=== PATIENT | female | born 1945 | race Caucasian/White ===

== ENCOUNTER 2016-10-14 21:25 | Inpatient (IN) | payer MEDICARE, MEDICAID ==
--- NOTE | 2016-10-14 22:12 | ED Physician Chart ---
Chief Complaint/HPI - Patient Information Date Seen:: 10/14/16 Time Seen:: 22:07 Chief Complaint:: geripsych eval History of Present Illness:: [place] after [place] has had worse behavior lately...she is screaming " help " nonstop. wont take her ativan. screams and swears at staff all day. she denies any pain at present. she is not a very good historian. no recent fever or infection. no acute pain. known hx of dementia. Allergies:: Allergies Allergy/AdvReac Type Severity Reaction Status Date / Time No Known Allergies Allergy Verified 10/14/16 22:06 Vitals:: Vital Signs - 8 hr 10/14/16 21:30 Temp 97.3 F HR 74 RR 18 BP 106/72 O2 Sat % 97 Historian:: Patient Review of Systems - Review of Systems General/Constitutional: No fever, No chills, No weight loss, No weakness, No diaphoresis, No edema, No loss of appetite Skin: No skin lesions, No rash, No bruising Head: No headache, No light-headedness Eyes: No loss of vision, No pain, No diplopia ENT: No earache, No nasal drainage, No sore throat, No tinnitus Neck: No neck pain, No swelling, No thyromegaly, No stiffness, No mass noted Cardio Vascular: No chest pain, No palpitations, No PND, No orthopnea, No edema Pulmonary: No SOB, No cough, No sputum, No wheezing GI: No nausea, No vomiting, No diarrhea, No pain, No melena, No hematochezia, No constipation, No hematemesis G/U: No dysuria, No frequency, No hematuria Musculoskeletal: No bone or joint pain, No back pain, No muscle pain Endocrine: No polyuria, No polydipsia Psychiatric: No prior psych history, No depression, No anxiety, No suicidal ideation Hematopoietic: No bruising, No lymphadenopathy Allergic/Immuno: No urticaria, No angioedema Neurological: No syncope, No focal symptoms, No weakness, No paresthesia, No headache, No seizure, No dizziness, Confusion, No vertigo Past Medical History - Past Medical History Past Medical History: DM, Asthma/COPD, CVA/TIA, Dyslipidemia, ESRD, Dementia Social History: Care Facility Psychiatricy History: Dementia Family Medical History - Family Member Mother History Unknown: Yes Physical Exam - Physical Examination General/Constitutional: Awake, Well-developed, well-nourished, Alert, No distress, Non-toxic appearing Other Gen/Cons comments:: alert and in no obvious pain. denies pain/illness/injury. wn/wh. somewhat drowsy. Head: Atraumatic Eyes: Lids, conjuctiva normal, PERRL, EOMI Skin: Nl inspection, No rash, No skin lesions, No ecchymosis, Well hydrated, No lymphadenopathy ENMT: External ears, nose nl, Nasal exam nl, Lips, teeth, gums nl Neck: Nontender, Full ROM w/o pain, No JVD, No nuchal rigidity, No bruit, No mass, No stridor Respiratory: Nl effort/Exclusion, Clear to Auscultation, No Wheeze/Rhonchi/Rales Cardio Vascular: RRR, No murmur, gallop, rubs, NL S1 S2 GI: No tenderness/rebounding/guarding, No organomegaly, No hernia, Normal BS's, Nondistended, No mass/bruits, No McBurney tenderness : No CVA tenderness Extremities: No tenderness or effusion, Full ROM, normal strength in all extremities, No edema, Normal digits & nails Neuro/Psych: Alert/oriented, DTR's symmetric, Normal sensory exam, Normal motor strength, Judgement/insight normal, Mood normal, Normal gait, No focal deficits Misc: normal gait, Normal back, No paraspinal tenderness Labs/Radiology/EKG Results - Lab Results Results: Laboratory Tests 10/14/16 10/14/16 10/14/16 22:35 22:35 22:35 WBC 7.1 RBC 3.62 L Hgb 11.4 L Hct 33.6 L MCV 92.8 MCH 31.6 H MCHC Differential 34.0 RDW 13.4 Plt Count 228 MPV 9.0 Neutrophils % 56.8 Lymphocytes % 24.4 Monocytes % 9.0 Eosinophils % 6.5 H Basophils % 3.3 H Sodium 139 Potassium 3.9 Chloride 108 H Carbon Dioxide 27.3 Anion Gap 7.6 BUN 25 Creatinine 1.3 H Est GFR ( Amer) TNP Est GFR (Non-Af Amer) TNP BUN/Creatinine Ratio 19.2 Glucose 116 H Calcium 9.0 Total Bilirubin 0.2 L AST 11 L ALT 5 L Alkaline Phosphatase 48 Troponin I Total Protein 6.2 Albumin 3.5 L Globulin 2.7 Albumin/Globulin Ratio 1.3 Triglycerides 107 Cholesterol 126 LDL Cholesterol Direct 69 L HDL Cholesterol 36 Salicylates < 25.0 L Acetaminophen < 10.0 L Valproic Acid 96.0 Ethyl Alcohol < 10 10/14/16 22:35 WBC RBC Hgb Hct MCV MCH MCHC Differential RDW Plt Count MPV Neutrophils % Lymphocytes % Monocytes % Eosinophils % Basophils % Sodium Potassium Chloride Carbon Dioxide Anion Gap BUN Creatinine Est GFR ( Amer) Est GFR (Non-Af Amer) BUN/Creatinine Ratio Glucose Calcium Total Bilirubin AST ALT Alkaline Phosphatase Troponin I < 0.01 L Total Protein Albumin Globulin Albumin/Globulin Ratio Triglycerides Cholesterol LDL Cholesterol Direct HDL Cholesterol Salicylates Acetaminophen Valproic Acid Ethyl Alcohol - EKG Interpretations EKG Time:: 20:15 Rate & Rhythm: nsr 76 [place]: 56 Intervals: qrs 116 Comments:: poor wave morphology (low voltage) inferior leads ED Septic Shock - . Is Septic Shock (SBP<90, OR Lactate>4 mmol\\L) present?: No - <6hrs of presentation: Vital Signs: Vital Signs - 8 hr 10/14/16 21:30 Temp 97.3 F HR 74 RR 18 BP 106/72 O2 Sat % 97 Reassessment (Disposition) - Reassessment Reassessment:: pt does become agitated and yelling at times. attempted to understand why but have gotten no cogent response. Reassessment Condition:: Unchanged - Diagnosis Diagnosis:: agitation, difficult behavior medically clear for geripsych admission - Patient Disposition Admitted to:: [facility] Condition at Disposition:: Unchanged
[2016-10-14 22:43] LABS: % BASOPHILS 3.3 % (0.0-2.0); % EOSINOPHILS 6.5 % (0.0-5.0); % LYMPHOCYTES 24.4 % (20.0-50.0); % NEUTROPHILS 56.8 % (40.0-80.0); HEMATOCRIT 33.6 % (35.0-45.0); HEMOGLOBIN 11.4 gm/dL (11.7-16.1); MEAN CELL VOLUME 92.8 fl (81-100); MEAN CORPUSCULAR HEMOGLOBIN 31.6 pg (27.0-31.0); NEUTROPHILE ABSOLUTE 4.1 Th/cmm (1.8-8.0); PLATELET COUNT 228 Th/cmm (150-400); RED BLOOD COUNT 3.62 Mil/cmm (3.80-5.20); RED CELL DISTRIBUTION WIDTH 13.4 % (11.5-20.0); WHITE BLOOD COUNT 7.1 Th/cmm (4.8-10.8)
[2016-10-14 23:04] LABS: ACETAMINOPHEN < 10.0 ug/mL (10.0-30.0); ALB/GLOB RATIO 1.3 (1.0-1.8); ALKALINE PHOSPHATASE 48 U/L (34-104); ANION GAP 7.6 (7.0-16.0); BILIRUBIN,TOTAL 0.2 mg/dL (0.3-1.0); BUN - UREA NITROGEN 25 mg/dL (7-25); BUN/CREATININE RATIO 19.2; CARBON DIOXIDE 27.3 mEq/L (21.0-31.0); CHLORIDE 108 mEq/L (98-107); CHOLESTEROL 126 mg/dL (<200); CREATININE - SERUM 1.3 mg/dL (0.6-1.2); GLUCOSE 116 mg/dL (70-105); POTASSIUM SERUM 3.9 mEq/L (3.5-5.1); SGOT 11 U/L (13-39); SGPT/ALT 5 U/L (7-52); SODIUM SERUM 139 mEq/L (136-145); TRIGLYCERIDES 107 mg/dL (<150)
[2016-10-15] MEDS ORDERED: Maalox 30 mL Cup PO PRN (03:28)
[2016-10-15] MEDS ORDERED: Magnesium Hydroxide (MOM) 30 mL UDC PO PRN ×2 (03:28→08:27)
[2016-10-15 04:38] VITALS: BP 103/80
[2016-10-15] MEDS ORDERED: Fleet Enema 135 mL RC PRN (08:27)
[2016-10-15] MEDS ORDERED: APAP/Oxycodone 5/325mg Oral Tab PO PRN (08:27)
[2016-10-15] MEDS ORDERED: Albuterol/Ipratropium Neb 3 ML AERS HHN PRN (08:27)
[2016-10-15] MEDS ORDERED: Non-Formulary Item 1 EA (Cran/Vitc/Mannose/Fos/Bromeln [Uti-Stat Liquid] 30 ML) PO SCH (09:00)
[2016-10-15] MEDS ORDERED: Multivitamin w/ Minerals Tab PO SCH (09:00)
[2016-10-15] MEDS ORDERED: Non-Formulary Item 1 EA (Fluticasone/Vilanterol [Breo Ellipta 100-25 Mcg Inh] 1 EACH) IH SCH (09:00)
[2016-10-15] MEDS: Multivitamin Tab PO SCH (09:00)
[2016-10-15] MEDS ORDERED: Non-Formulary Item 1 EA (Cranberry Fruit Concentrate [Cranberry] 450 MG) PO SCH (09:00)
[2016-10-15] MEDS: Dextromethorphan/Quinidine 20mg/10mg Cap PO SCH ×2 (09:13→21:18)
[2016-10-15] MEDS: Oxybutynin Chloride 5 mg ER Tab PO SCH ×2 (14:16→16:28)
[2016-10-15] MEDS ORDERED: Haloperidol Lactate 5 mg/mL 1mL Vial IM ONE (15:19)
[2016-10-15] MEDS ORDERED: Haloperidol Lactate 5 mg/mL 1mL Vial ONE (15:19)
[2016-10-15] MEDS: Pantoprazole 40 mg EC Tab PO SCH (16:19)
[2016-10-15] MEDS: Atorvastatin Calcium 10 MG TAB PO SCH (21:00)
[2016-10-15] MEDS ORDERED: PYRIDOXINE PO SCH (21:00)
[2016-10-15] MEDS ORDERED: MELATONIN PO SCH (21:00)
[2016-10-16] MEDS: Dextromethorphan/Quinidine 20mg/10mg Cap PO SCH ×3 (10:45→20:51)
[2016-10-16] MEDS: Pantoprazole 40 mg EC Tab PO SCH ×2 (10:46→11:48)
[2016-10-16] MEDS: Multivitamin Tab PO SCH ×2 (10:46→11:43)
[2016-10-16] MEDS: Oxybutynin Chloride 5 mg ER Tab PO SCH ×3 (10:46→16:49)
[2016-10-16] MEDS ORDERED: Haloperidol Lactate 5 mg/mL 1mL Vial ONE (14:43)
[2016-10-16] MEDS: Haloperidol Lactate 5 mg/mL 1mL Vial IM ONE ×2 (14:53→14:54)
[2016-10-16] MEDS: Atorvastatin Calcium 10 MG TAB PO SCH (20:52)
[2016-10-17] MEDS: Oxybutynin Chloride 5 mg ER Tab PO SCH ×2 (08:35→17:05)
[2016-10-17] MEDS: Multivitamin Tab PO SCH (08:35)
[2016-10-17] MEDS: Dextromethorphan/Quinidine 20mg/10mg Cap PO SCH ×2 (08:37→20:37)
[2016-10-17] MEDS: Pantoprazole 40 mg EC Tab PO SCH (08:37)
[2016-10-17] MEDS: Atorvastatin Calcium 10 MG TAB PO SCH (20:36)
[2016-10-18] MEDS: Dextromethorphan/Quinidine 20mg/10mg Cap PO SCH ×2 (09:49→20:54)
[2016-10-18] MEDS: Multivitamin Tab PO SCH (09:50)
[2016-10-18] MEDS: Oxybutynin Chloride 5 mg ER Tab PO SCH ×2 (09:50→17:21)
[2016-10-18] MEDS: Pantoprazole 40 mg EC Tab PO SCH (09:50)
[2016-10-18] MEDS: Atorvastatin Calcium 10 MG TAB PO SCH (20:54)
[2016-10-19] MEDS: Oxybutynin Chloride 5 mg ER Tab PO SCH ×2 (08:08→17:40)
[2016-10-19] MEDS: Multivitamin Tab PO SCH (08:09)
[2016-10-19] MEDS: Dextromethorphan/Quinidine 20mg/10mg Cap PO SCH ×2 (08:09→20:36)
[2016-10-19] MEDS: Pantoprazole 40 mg EC Tab PO SCH (08:09)
[2016-10-19] MEDS: Atorvastatin Calcium 10 MG TAB PO SCH (20:36)
[2016-10-20] MEDS: Multivitamin Tab PO SCH (08:09)
[2016-10-20] MEDS: Pantoprazole 40 mg EC Tab PO SCH (08:09)
[2016-10-20] MEDS: Dextromethorphan/Quinidine 20mg/10mg Cap PO SCH ×2 (08:09→20:31)
[2016-10-20] MEDS: Oxybutynin Chloride 5 mg ER Tab PO SCH ×2 (08:09→17:11)
[2016-10-20] MEDS: Atorvastatin Calcium 10 MG TAB PO SCH (20:30)
[2016-10-21] MEDS: Oxybutynin Chloride 5 mg ER Tab PO SCH ×2 (09:23→17:17)
[2016-10-21] MEDS: Dextromethorphan/Quinidine 20mg/10mg Cap PO SCH ×2 (09:23→20:51)
[2016-10-21] MEDS: Pantoprazole 40 mg EC Tab PO SCH (09:23)
[2016-10-21] MEDS: Multivitamin Tab PO SCH (09:23)
[2016-10-21] MEDS: Atorvastatin Calcium 10 MG TAB PO SCH (20:50)
--- NOTE | 2016-10-21 23:43 | Admit Criteria Form ---
Admit Criteria Forms - Admit Criteria Diagnosis: PSYCHIATRIC DISORDERS (Place 'X' for any and all applicable criteria): Ongoing inpatient care may be needed for 1 or more of the following(1)(2)(3)(4)( 6)(7)(8): [ ]I. Danger to self or others not manageable at lower level of care. [ ]II. Grave disability (eg, inability to perform self care necessary at lower level of care) [X ]III. Agitation or inappropriate behavior interfering with care for primary condition (eg, attempting to discontinue lines or drains prematurely, unable to cooperate with respiratory care) [ ]IV. Severe disability or disorder indicated by ALL of the following: [ ]a) Severe behavioral health disorder-related symptoms or condition indicated by 1 or more of the following: [ ]i) Severe problem with cognition, memory, judgment, or impulse control [ ]ii) Severe clinical manifestations (eg, hallucinations, delusions, other acute psychotic symptoms, jessica, extreme agitation or anxiety) [ ]b) Patient management at lower level of care is not feasible until acute intervention or modification is initiated. Extended stay beyond goal length of stay for the primary condition may be needed until ALLof the following are present(1)(2)(3)(4)(722)(23): [ ]a) Danger to self or others is absent or manageable at lower level of care [ ]b) Behavior crisis management, including physical or chemical restraints, is required and is not available at a lower level of care. [ ]c) Behavioral symptoms (e.g., agitation, somnolence, inappropriate behavior) are present, and are not manageable at a lower level of care. [ ]d) Patient cannot understand follow-up treatment and crisis plan. [ ]e) Provider and supports are sufficiently available at lower level of care. [ ]f) Patient can participate (e.g., verify absence of plan for harm) and is in needed of monitoring. The original [facility] [employer] content created by [facility] [employer] has been revised. The portions of the content which have been revised are identified through the use of italic text or in bold, and [facility] [employer] has neither reviewed nor approved the modified material. All other unmodified content is copyright [facility]. Please see references footnoted in the original [facility] edition 2017 Admit Criteria Met?: Yes
[2016-10-22] MEDS: Multivitamin Tab PO SCH (09:16)
[2016-10-22] MEDS: Dextromethorphan/Quinidine 20mg/10mg Cap PO SCH ×2 (09:16→21:32)
[2016-10-22] MEDS: Oxybutynin Chloride 5 mg ER Tab PO SCH ×2 (09:16→17:05)
[2016-10-22] MEDS: Pantoprazole 40 mg EC Tab PO SCH (09:16)
[2016-10-22] MEDS ORDERED: Haloperidol Lactate 5 mg/mL 1mL Vial IM ONE (14:29)
[2016-10-22] MEDS: Atorvastatin Calcium 10 MG TAB PO SCH (21:31)
[2016-10-23] MEDS: Pantoprazole 40 mg EC Tab PO SCH (08:12)
[2016-10-23] MEDS: Dextromethorphan/Quinidine 20mg/10mg Cap PO SCH ×2 (08:13→21:40)
[2016-10-23] MEDS: Oxybutynin Chloride 5 mg ER Tab PO SCH ×2 (08:13→17:14)
[2016-10-23] MEDS: Multivitamin Tab PO SCH (08:13)
--- NOTE | 2016-10-23 08:16 | General Progress Note ---
Subjective - Review of Systems Service Date: 10/23/16 Subjective: Awake, Alert, Afebrile Objective - Results Result Diagrams: 10/14/16 22:35 10/14/16 22:35 Recent Labs: Laboratory Last Values WBC 7.1 Th/cmm (4.8-10.8) 10/14/16 22:35 RBC 3.62 Mil/cmm (3.80-5.20) L 10/14/16 22:35 Hgb 11.4 gm/dL (11.7-16.1) L 10/14/16 22:35 Hct 33.6 % (35.0-45.0) L 10/14/16 22:35 MCV 92.8 fl (81-100) 10/14/16 22:35 MCH 31.6 pg (27.0-31.0) H 10/14/16 22:35 MCHC Differential 34.0 pg (28.0-36.0) 10/14/16 22:35 RDW 13.4 % (11.5-20.0) 10/14/16 22:35 Plt Count 228 Th/cmm (150-400) 10/14/16 22:35 MPV 9.0 fl 10/14/16 22:35 Neutrophils % 56.8 % (40.0-80.0) 10/14/16 22:35 Lymphocytes % 24.4 % (20.0-50.0) 10/14/16 22:35 Monocytes % 9.0 % (2.0-10.0) 10/14/16 22:35 Eosinophils % 6.5 % (0.0-5.0) H 10/14/16 22:35 Basophils % 3.3 % (0.0-2.0) H 10/14/16 22:35 Sodium 139 mEq/L (136-145) 10/14/16 22:35 Potassium 3.9 mEq/L (3.5-5.1) 10/14/16 22:35 Chloride 108 mEq/L (98-107) H 10/14/16 22:35 Carbon Dioxide 27.3 mEq/L (21.0-31.0) 10/14/16 22:35 Anion Gap 7.6 (7.0-16.0) 10/14/16 22:35 BUN 25 mg/dL (7-25) 10/14/16 22:35 Creatinine 1.3 mg/dL (0.6-1.2) H 10/14/16 22:35 Est GFR ( Amer) TNP 10/14/16 22:35 Est GFR (Non-Af Amer) TNP 10/14/16 22:35 BUN/Creatinine Ratio 19.2 10/14/16 22:35 Glucose 116 mg/dL (70-105) H 10/14/16 22:35 POC Glucose 90 MG/DL (70 - 105) 10/20/16 06:38 Calcium 9.0 mg/dL (8.6-10.3) 10/14/16 22:35 Total Bilirubin 0.2 mg/dL (0.3-1.0) L 10/14/16 22:35 AST 11 U/L (13-39) L 10/14/16 22:35 ALT 5 U/L (7-52) L 10/14/16 22:35 Alkaline Phosphatase 48 U/L (34-104) 10/14/16 22:35 Troponin I < 0.01 ng/mL (0.01-0.05) L 10/14/16 22:35 Total Protein 6.2 gm/dL (6.0-8.3) 10/14/16 22:35 Albumin 3.5 gm/dL (3.7-5.3) L 10/14/16 22:35 Globulin 2.7 gm/dL 10/14/16 22:35 Albumin/Globulin Ratio 1.3 (1.0-1.8) 10/14/16 22:35 Triglycerides 107 mg/dL (<150) 10/14/16 22:35 Cholesterol 126 mg/dL (<200) 10/14/16 22:35 LDL Cholesterol Direct 69 mg/dL (75-193) L 10/14/16 22:35 HDL Cholesterol 36 mg/dL (23-92) 10/14/16 22:35 TSH 5.85 uIU/ml (0.34-5.60) H 10/14/16 22:35 Salicylates < 25.0 mg/L (30.0-100.0) L 10/14/16 22:35 Acetaminophen < 10.0 ug/mL (10.0-30.0) L 10/14/16 22:35 Valproic Acid 96.0 ug/mL (50.0-100.0) 10/14/16 22:35 Ethyl Alcohol < 10 mg/dL (0-10) 10/14/16 22:35 RPR NONREACTIVE (NONREACTIVE) 10/14/16 22:35 - Physical Exam Vitals and I&O: Vital Signs Temp 98.2 F 10/23/16 07:11 Pulse 65 10/23/16 07:11 Resp 19 10/23/16 07:11 BP 108/67 10/23/16 07:11 Pulse Ox 98 10/23/16 07:11 Intake & Output 10/22/16 10/23/16 10/23/16 18:59 06:59 18:59 Intake Total 1200 Balance 1200 Intake: Oral 1200 Other: # Voids 1 # Bowel Movements 1 Active Medications: Current Medications Acetaminophen (Tylenol) 650 mg PO Q4HR PRN PRN Reason: MILD PAIN AND T>101F Stop: 12/14/16 08:26 Al Hydrox/Mg Hydrox/Simethicone (Maalox) 30 ml PO Q4HR PRN PRN Reason: GI DISTRESS Stop: 12/14/16 03:27 Albuterol/Ipratropium (Duoneb Neb) 3 ml HHN Q4HR PRN PRN Reason: Shortness of Breath or Wheeze Stop: 12/14/16 08:26 Ascorbic Acid (Vitamin C) 500 mg PO DAILY NOY Stop: 12/14/16 08:59 Last Admin: 10/22/16 09:15 Dose: 500 mg Atorvastatin Calcium (Lipitor) 20 mg PO HS NOY Stop: 12/14/16 20:59 Last Admin: 10/22/16 21:31 Dose: 20 mg Bisacodyl (Dulcolax 10 Mg Supp) 10 mg RC DAILY PRN PRN Reason: Constipation Stop: 12/14/16 08:26 Buspirone HCl (Buspar) 10 mg PO DAILY NOY Stop: 12/14/16 16:59 Last Admin: 10/22/16 09:15 Dose: 10 mg Dextromethorphan/Quinidine (Nuedexta 20mg-10mg) 1 cap PO Q12HR NOY Stop: 12/14/16 08:59 Last Admin: 10/22/16 21:32 Dose: 1 cap Divalproex Sodium (Depakote Sprinkle) 250 mg PO BID NOY PRN Reason: Protocol Stop: 12/14/16 08:59 Last Admin: 10/22/16 17:05 Dose: 250 mg Docusate Sodium (Colace) 100 mg PO DAILY NOY Stop: 12/14/16 08:59 Last Admin: 10/22/16 09:15 Dose: 100 mg Ibuprofen (Motrin) 600 mg PO BID NOY Stop: 12/14/16 08:59 Last Admin: 10/22/16 17:05 Dose: 600 mg Lorazepam (Ativan) 0.5 mg PO Q4HR PRN; Protocol PRN Reason: Anxiety Stop: 11/14/16 03:27 Last Admin: 10/22/16 13:07 Dose: 0.5 mg Magnesium Hydroxide (Milk Of Magnesia) 30 ml PO HS PRN PRN Reason: Constipation Magnesium Hydroxide (Milk Of Magnesia) 30 ml PO HS PRN PRN Reason: Constipation Stop: 12/14/16 08:26 Mirtazapine (Remeron) 15 mg PO HS NOY PRN Reason: Protocol Stop: 12/14/16 20:59 Last Admin: 10/22/16 21:32 Dose: 15 mg Multivitamins/Vitamin C (Theragran) 1 tab PO DAILY NOY Stop: 12/14/16 08:59 Last Admin: 10/22/16 09:16 Dose: 1 tab Oxybutynin Chloride (Ditropan Xl) 5 mg PO BID NOY Stop: 12/14/16 08:59 Last Admin: 10/22/16 17:05 Dose: 5 mg Pantoprazole Sodium (Protonix) 40 mg PO DAILY NOY Stop: 12/14/16 08:59 Last Admin: 10/22/16 09:16 Dose: 40 mg Quetiapine Fumarate (Seroquel) 200 mg PO HS NOY PRN Reason: Protocol Stop: 12/22/16 20:59 Quetiapine Fumarate (Seroquel) 100 mg PO BID NOY Stop: 12/22/16 08:59 Sodium Phosphate (Fleet Enema) 135 ml RC Q48HR PRN PRN Reason: Constipation Stop: 12/14/16 08:26 Zinc Sulfate (Zinc Sulfate) 220 mg PO DAILY NOY Stop: 12/14/16 08:59 Last Admin: 07/19/17 09:15 Dose: 220 mg Zolpidem Tartrate (Ambien) 5 mg PO HS PRN PRN Reason: Insomnia Stop: 12/14/16 03:27 General: Alert HEENT: Atraumatic Neck: Supple Cardiovascular: Regular rate Lungs: Clear to auscultation Abdomen: Bowel sounds Assessment/Plan - Problem List Patient Problems: All Active Problems Asthma (Acute) J45.909 COPD (chronic obstructive pulmonary disease) (Acute) Hyperlipidemia (Acute) E78.5 PBA (pseudobulbar affect) (Acute) F48.2 PVD (peripheral vascular disease) (Acute) I73.9 Psychosis (Acute) F29 TIA (transient ischemic attack) (Acute) - Assessment Assessment: See above - Plan Plan: Continue Current Treatment Nutritional Asmnt/Malnutr-PDOC - Dietary Evaluation Malnutrition Findings (Please click <Entered> for more info): Nutritional Asmnt/Malnutrition Start: 10/17/16 11: 20 Text: Status: Complete Freq: Document 10/17/16 11:20 GSUN (Rec: 10/17/16 11:46 GSUN [id number]) Nutritional Asmnt/Malnutrition Patient General Information Nutritional Screening Consult Diagnosis Reason for visit: psychosis Pertinent Medical Hx/Surgical Hx DM, asthma/COPD, TIA, hyperlipidemia, dementia, major depression, bipolar Subjective Information 71 [address] consult for right heel pressure ulcer . Pt was calm during visit, confusion noted, fixated on wanting to go home and taking shoes off (pt was not wearing shoes). Pt is edentulous, denied difficulties chewing/ swallowing. Pt usually with good appetite, avg PO intake 100% of meals yesterday, meeting nutritional needs. Explained to pt importance of nutrition for ulcer to heal, pt understood. Pt report UBW 115lb, pt appear closer to 140lb. Unable to weigh due to air loww mattress. Pt appear appropriate for age, no significant wasting noted. Current Diet Order/ Nutrition Support Regular, mech soft chopped Pertinent Medications Maalox, Vitamin C, Lipitor, Dulcolax, Colace, MOM, Remeron , Theragran, Protonix, Seroquel, Fleet Enema, Zinc Sulfate Pertinent Labs 10/14: creatinine 1.3H, glucose 116H POC glucose 145H, 98 Nutritional Hx/Data Height 1.57 m Height (Calculated Centimeters) 157.5 Current Weight (lbs) 65.771 kg Weight (Calculated Kilograms) 65.8 Weight (Calculated Grams) 77192.9 [place] Body Weight 110 Weight Status Overweight GI Symptoms Skin Integrity/Comment: Florencio 12. Woud care 10/16: right heel acute on chronic pressure ulcer Current %PO Good (75-100%) Estimated Nutritional Goals Calories/Kcals/Kg EMR weight 145lb/65.9kg Kcals Calculated 1648-1977kcal (25-30kcal/kg) Protein Calculated 66-86g (1-1.3g/kg) Fluid: ml 1648-1977ml (1ml/kcal) Nutritional Problem 2. Problem Problem Altered nutrition related laboratory values related to Etiology DM aeb Signs/Symptoms: H&P, elevated glucose 1. Problem Problem Increased prot needs related to Etiology skin integrity aeb Signs/Symptoms: right heel pressure ulcer Intervention/Recommendation Comments 1. Recommend [id number] mech soft chopped. Avg PO intake is adequate. 2. Recommend 1 packet Arginaid for wound healing. Expected Outcomes/Goals Expected Outcomes/Goals 1. PO intake continue to meet at least 75% of estimated nutritional needs.
[2016-10-23] MEDS: Atorvastatin Calcium 10 MG TAB PO SCH (21:40)
--- NOTE | 2016-10-24 08:10 | General Progress Note ---
Subjective - Review of Systems Service Date: 10/24/16 Subjective: Awake, Alert, Afebrile Objective - Results Result Diagrams: 10/14/16 22:35 10/14/16 22:35 Recent Labs: Laboratory Last Values WBC 7.1 Th/cmm (4.8-10.8) 10/14/16 22:35 RBC 3.62 Mil/cmm (3.80-5.20) L 10/14/16 22:35 Hgb 11.4 gm/dL (11.7-16.1) L 10/14/16 22:35 Hct 33.6 % (35.0-45.0) L 10/14/16 22:35 MCV 92.8 fl (81-100) 10/14/16 22:35 MCH 31.6 pg (27.0-31.0) H 10/14/16 22:35 MCHC Differential 34.0 pg (28.0-36.0) 10/14/16 22:35 RDW 13.4 % (11.5-20.0) 10/14/16 22:35 Plt Count 228 Th/cmm (150-400) 10/14/16 22:35 MPV 9.0 fl 10/14/16 22:35 Neutrophils % 56.8 % (40.0-80.0) 10/14/16 22:35 Lymphocytes % 24.4 % (20.0-50.0) 10/14/16 22:35 Monocytes % 9.0 % (2.0-10.0) 10/14/16 22:35 Eosinophils % 6.5 % (0.0-5.0) H 10/14/16 22:35 Basophils % 3.3 % (0.0-2.0) H 10/14/16 22:35 Sodium 139 mEq/L (136-145) 10/14/16 22:35 Potassium 3.9 mEq/L (3.5-5.1) 10/14/16 22:35 Chloride 108 mEq/L (98-107) H 10/14/16 22:35 Carbon Dioxide 27.3 mEq/L (21.0-31.0) 10/14/16 22:35 Anion Gap 7.6 (7.0-16.0) 10/14/16 22:35 BUN 25 mg/dL (7-25) 10/14/16 22:35 Creatinine 1.3 mg/dL (0.6-1.2) H 10/14/16 22:35 Est GFR ( Amer) TNP 10/14/16 22:35 Est GFR (Non-Af Amer) TNP 10/14/16 22:35 BUN/Creatinine Ratio 19.2 10/14/16 22:35 Glucose 116 mg/dL (70-105) H 10/14/16 22:35 POC Glucose 90 MG/DL (70 - 105) 10/20/16 06:38 Calcium 9.0 mg/dL (8.6-10.3) 10/14/16 22:35 Total Bilirubin 0.2 mg/dL (0.3-1.0) L 10/14/16 22:35 AST 11 U/L (13-39) L 10/14/16 22:35 ALT 5 U/L (7-52) L 10/14/16 22:35 Alkaline Phosphatase 48 U/L (34-104) 10/14/16 22:35 Troponin I < 0.01 ng/mL (0.01-0.05) L 10/14/16 22:35 Total Protein 6.2 gm/dL (6.0-8.3) 10/14/16 22:35 Albumin 3.5 gm/dL (3.7-5.3) L 10/14/16 22:35 Globulin 2.7 gm/dL 10/14/16 22:35 Albumin/Globulin Ratio 1.3 (1.0-1.8) 10/14/16 22:35 Triglycerides 107 mg/dL (<150) 10/14/16 22:35 Cholesterol 126 mg/dL (<200) 10/14/16 22:35 LDL Cholesterol Direct 69 mg/dL (75-193) L 10/14/16 22:35 HDL Cholesterol 36 mg/dL (23-92) 10/14/16 22:35 TSH 5.85 uIU/ml (0.34-5.60) H 10/14/16 22:35 Salicylates < 25.0 mg/L (30.0-100.0) L 10/14/16 22:35 Acetaminophen < 10.0 ug/mL (10.0-30.0) L 10/14/16 22:35 Valproic Acid 96.0 ug/mL (50.0-100.0) 10/14/16 22:35 Ethyl Alcohol < 10 mg/dL (0-10) 10/14/16 22:35 RPR NONREACTIVE (NONREACTIVE) 10/14/16 22:35 - Physical Exam Vitals and I&O: Vital Signs Temp 97.6 F 10/24/16 07:21 Pulse 68 10/24/16 07:21 Resp 18 10/24/16 07:21 BP 92/54 10/24/16 07:21 Pulse Ox 97 10/24/16 07:21 Intake & Output 10/23/16 10/24/16 10/24/16 18:59 06:59 18:59 Intake Total 800 Balance 800 Intake: Oral 800 Other: # Voids 3 2 # Bowel Movements 0 Active Medications: Current Medications Acetaminophen (Tylenol) 650 mg PO Q4HR PRN PRN Reason: MILD PAIN AND T>101F Stop: 12/14/16 08:26 Al Hydrox/Mg Hydrox/Simethicone (Maalox) 30 ml PO Q4HR PRN PRN Reason: GI DISTRESS Stop: 12/14/16 03:27 Albuterol/Ipratropium (Duoneb Neb) 3 ml HHN Q4HR PRN PRN Reason: Shortness of Breath or Wheeze Stop: 12/14/16 08:26 Ascorbic Acid (Vitamin C) 500 mg PO DAILY NOY Stop: 12/14/16 08:59 Last Admin: 10/23/16 08:13 Dose: 500 mg Atorvastatin Calcium (Lipitor) 20 mg PO HS [facility] Stop: 12/14/16 20:59 Last Admin: 10/23/16 21:40 Dose: 20 mg Bisacodyl (Dulcolax 10 Mg Supp) 10 mg RC DAILY PRN PRN Reason: Constipation Stop: 12/14/16 08:26 Buspirone HCl (Buspar) 10 mg PO DAILY [facility] Stop: 12/14/16 16:59 Last Admin: 10/23/16 08:13 Dose: 10 mg Dextromethorphan/Quinidine (Nuedexta 20mg-10mg) 1 cap PO Q12HR NOY Stop: 12/14/16 08:59 Last Admin: 10/23/16 21:40 Dose: 1 cap Divalproex Sodium (Depakote Sprinkle) 250 mg PO BID NOY PRN Reason: Protocol Stop: 12/14/16 08:59 Last Admin: 10/23/16 17:14 Dose: 250 mg Docusate Sodium (Colace) 100 mg PO DAILY NOY Stop: 12/14/16 08:59 Last Admin: 10/23/16 08:12 Dose: 100 mg Ibuprofen (Motrin) 600 mg PO BID NOY Stop: 12/14/16 08:59 Last Admin: 10/23/16 17:15 Dose: 600 mg Lorazepam (Ativan) 0.5 mg PO Q4HR PRN; Protocol PRN Reason: Anxiety Stop: 11/14/16 03:27 Last Admin: 10/23/16 15:50 Dose: 0.5 mg Magnesium Hydroxide (Milk Of Magnesia) 30 ml PO HS PRN PRN Reason: Constipation Magnesium Hydroxide (Milk Of Magnesia) 30 ml PO HS PRN PRN Reason: Constipation Stop: 12/14/16 08:26 Mirtazapine (Remeron) 15 mg PO HS NOY PRN Reason: Protocol Stop: 12/14/16 20:59 Last Admin: 10/23/16 21:40 Dose: 15 mg Multivitamins/Vitamin C (Theragran) 1 tab PO DAILY NOY Stop: 12/14/16 08:59 Last Admin: 10/23/16 08:13 Dose: 1 tab Oxybutynin Chloride (Ditropan Xl) 5 mg PO BID NOY Stop: 12/14/16 08:59 Last Admin: 10/23/16 17:14 Dose: 5 mg Pantoprazole Sodium (Protonix) 40 mg PO DAILY NOY Stop: 12/14/16 08:59 Last Admin: 10/23/16 08:12 Dose: 40 mg Quetiapine Fumarate (Seroquel) 200 mg PO HS NOY PRN Reason: Protocol Stop: 12/22/16 20:59 Last Admin: 10/23/16 21:40 Dose: 200 mg Quetiapine Fumarate (Seroquel) 100 mg PO BID NOY Stop: 12/22/16 08:59 Last Admin: 10/23/16 17:14 Dose: 100 mg Sodium Phosphate (Fleet Enema) 135 ml RC Q48HR PRN PRN Reason: Constipation Stop: 12/14/16 08:26 Zinc Sulfate (Zinc Sulfate) 220 mg PO DAILY NOY Stop: 12/14/16 08:59 Last Admin: 10/23/16 08:11 Dose: 220 mg Zolpidem Tartrate (Ambien) 5 mg PO HS PRN PRN Reason: Insomnia Stop: 12/14/16 03:27 General: Alert HEENT: Atraumatic Neck: Supple Cardiovascular: Regular rate Lungs: Clear to auscultation Abdomen: Bowel sounds Assessment/Plan - Problem List Patient Problems: All Active Problems Asthma (Acute) J45.909 COPD (chronic obstructive pulmonary disease) (Acute) Hyperlipidemia (Acute) E78.5 PBA (pseudobulbar affect) (Acute) F48.2 PVD (peripheral vascular disease) (Acute) I73.9 Psychosis (Acute) F29 TIA (transient ischemic attack) (Acute) - Assessment Assessment: See above - Plan Plan: Continue Current Treatment Nutritional Asmnt/Malnutr-PDOC - Dietary Evaluation Malnutrition Findings (Please click <Entered> for more info): Nutritional Asmnt/Malnutrition Start: 10/17/16 11: 20 Text: Status: Complete Freq: Document 10/17/16 11:20 GSUN (Rec: 10/17/16 11:46 [email or web address] [email or web address]) Nutritional Asmnt/Malnutrition Patient General Information Nutritional Screening Consult Diagnosis Reason for visit: psychosis Pertinent Medical Hx/Surgical Hx DM, asthma/COPD, TIA, hyperlipidemia, dementia, major depression, bipolar Subjective Information 71 [address] consult for right heel pressure ulcer . Pt was calm during visit, confusion noted, fixated on wanting to go home and taking shoes off (pt was not wearing shoes). Pt is edentulous, denied difficulties chewing/ swallowing. Pt usually with good appetite, avg PO intake 100% of meals yesterday, meeting nutritional needs. Explained to pt importance of nutrition for ulcer to heal, pt understood. Pt report UBW 115lb, pt appear closer to 140lb. Unable to weigh due to air loww mattress. Pt appear appropriate for age, no significant wasting noted. Current Diet Order/ Nutrition Support Regular, mech soft chopped Pertinent Medications Maalox, Vitamin C, Lipitor, Dulcolax, Colace, MOM, Remeron , Theragran, Protonix, Seroquel, Fleet Enema, Zinc Sulfate Pertinent Labs 10/14: creatinine 1.3H, glucose 116H POC glucose 145H, 98 Nutritional Hx/Data Height 1.57 m Height (Calculated Centimeters) 157.5 Current Weight (lbs) 65.771 kg Weight (Calculated Kilograms) 65.8 Weight (Calculated Grams) 39779.9 [place] Body Weight 110 Weight Status Overweight GI Symptoms Skin Integrity/Comment: Florencio 12. Woudn care 10/16: right heel acute on chronic pressure ulcer Current %PO Good (75-100%) Estimated Nutritional Goals Calories/Kcals/Kg EMR weight 145lb/65.9kg Kcals Calculated 1648-1977kcal (25-30kcal/kg) Protein Calculated 66-86g (1-1.3g/kg) Fluid: ml 1648-1977ml (1ml/kcal) Nutritional Problem 2. Problem Problem Altered nutrition related laboratory values related to Etiology DM aeb Signs/Symptoms: H&P, elevated glucose 1. Problem Problem Increased prot needs related to Etiology skin integrity aeb Signs/Symptoms: right heel pressure ulcer Intervention/Recommendation Comments 1. [id number] Avg PO intake is adequate. 2. Recommend 1 packet Arginaid for wound healing. Expected Outcomes/Goals Expected Outcomes/Goals 1. PO intake continue to meet at least 75% of estimated nutritional needs.
[2016-10-24] MEDS: Dextromethorphan/Quinidine 20mg/10mg Cap PO SCH ×2 (09:48→20:21)
[2016-10-24] MEDS: Multivitamin Tab PO SCH (09:49)
[2016-10-24] MEDS: Pantoprazole 40 mg EC Tab PO SCH (09:49)
[2016-10-24] MEDS: Oxybutynin Chloride 5 mg ER Tab PO SCH ×2 (09:49→16:36)
[2016-10-24] MEDS: Atorvastatin Calcium 10 MG TAB PO SCH (20:22)
--- NOTE | 2016-10-24 22:00 | Progress Notes ---
DATE: 10/24/2016 SUBJECTIVE: Chart reviewed and the patient interviewed. Also discussed the patient's condition with the staff and reviewed records and labs. The patient seems to be slightly calmer, but is still having episodes of yelling and screaming, but much less than what it was before. The patient at times seems to be slightly sedated and sleepy. She is still confused and she still needs lots of redirections. The patient also is still having difficulty following directions. Also, personal hygiene is poor and patient wants to be left alone. ASSESSMENT: The patient is still psychotic and agitated. TREATMENT PLAN: We will continue monitoring her behavior and her condition closely. Also continue adjusting psychotropic medications. Also, continue to work on discharge plans and on placement issue. JOB# [id number]
--- NOTE | 2016-10-25 07:17 | General Progress Note ---
Subjective - Review of Systems Service Date: 10/25/16 Subjective: Awake, Alert, Afebrile Objective - Results Result Diagrams: 10/14/16 22:35 10/14/16 22:35 Recent Labs: Laboratory Last Values WBC 7.1 Th/cmm (4.8-10.8) 10/14/16 22:35 RBC 3.62 Mil/cmm (3.80-5.20) L 10/14/16 22:35 Hgb 11.4 gm/dL (11.7-16.1) L 10/14/16 22:35 Hct 33.6 % (35.0-45.0) L 10/14/16 22:35 MCV 92.8 fl (81-100) 10/14/16 22:35 MCH 31.6 pg (27.0-31.0) H 10/14/16 22:35 MCHC Differential 34.0 pg (28.0-36.0) 10/14/16 22:35 RDW 13.4 % (11.5-20.0) 10/14/16 22:35 Plt Count 228 Th/cmm (150-400) 10/14/16 22:35 MPV 9.0 fl 10/14/16 22:35 Neutrophils % 56.8 % (40.0-80.0) 10/14/16 22:35 Lymphocytes % 24.4 % (20.0-50.0) 10/14/16 22:35 Monocytes % 9.0 % (2.0-10.0) 10/14/16 22:35 Eosinophils % 6.5 % (0.0-5.0) H 10/14/16 22:35 Basophils % 3.3 % (0.0-2.0) H 10/14/16 22:35 Sodium 139 mEq/L (136-145) 10/14/16 22:35 Potassium 3.9 mEq/L (3.5-5.1) 10/14/16 22:35 Chloride 108 mEq/L (98-107) H 10/14/16 22:35 Carbon Dioxide 27.3 mEq/L (21.0-31.0) 10/14/16 22:35 Anion Gap 7.6 (7.0-16.0) 10/14/16 22:35 BUN 25 mg/dL (7-25) 10/14/16 22:35 Creatinine 1.3 mg/dL (0.6-1.2) H 10/14/16 22:35 Est GFR ( Amer) TNP 10/14/16 22:35 Est GFR (Non-Af Amer) TNP 10/14/16 22:35 BUN/Creatinine Ratio 19.2 10/14/16 22:35 Glucose 116 mg/dL (70-105) H 10/14/16 22:35 POC Glucose 90 MG/DL (70 - 105) 10/20/16 06:38 Calcium 9.0 mg/dL (8.6-10.3) 10/14/16 22:35 Total Bilirubin 0.2 mg/dL (0.3-1.0) L 10/14/16 22:35 AST 11 U/L (13-39) L 10/14/16 22:35 ALT 5 U/L (7-52) L 10/14/16 22:35 Alkaline Phosphatase 48 U/L (34-104) 10/14/16 22:35 Troponin I < 0.01 ng/mL (0.01-0.05) L 10/14/16 22:35 Total Protein 6.2 gm/dL (6.0-8.3) 10/14/16 22:35 Albumin 3.5 gm/dL (3.7-5.3) L 10/14/16 22:35 Globulin 2.7 gm/dL 10/14/16 22:35 Albumin/Globulin Ratio 1.3 (1.0-1.8) 10/14/16 22:35 Triglycerides 107 mg/dL (<150) 10/14/16 22:35 Cholesterol 126 mg/dL (<200) 10/14/16 22:35 LDL Cholesterol Direct 69 mg/dL (75-193) L 10/14/16 22:35 HDL Cholesterol 36 mg/dL (23-92) 10/14/16 22:35 TSH 5.85 uIU/ml (0.34-5.60) H 10/14/16 22:35 Salicylates < 25.0 mg/L (30.0-100.0) L 10/14/16 22:35 Acetaminophen < 10.0 ug/mL (10.0-30.0) L 10/14/16 22:35 Valproic Acid 96.0 ug/mL (50.0-100.0) 10/14/16 22:35 Ethyl Alcohol < 10 mg/dL (0-10) 10/14/16 22:35 RPR NONREACTIVE (NONREACTIVE) 10/14/16 22:35 - Physical Exam Vitals and I&O: Vital Signs Temp 97.4 F 10/24/16 14:00 Pulse 81 10/24/16 19:14 Resp 18 10/24/16 20:00 BP 110/60 10/24/16 14:00 Pulse Ox 97 10/24/16 19:14 Intake & Output 10/24/16 10/25/16 10/25/16 18:59 06:59 18:59 Intake Total 800 Balance 800 Intake: Oral 800 Other: # Voids 3 # Bowel Movements 0 Stool Characteristics Soft Formed Active Medications: Current Medications Acetaminophen (Tylenol) 650 mg PO Q4HR PRN PRN Reason: MILD PAIN AND T>101F Stop: 12/14/16 08:26 Last Admin: 10/24/16 20:21 Dose: 650 mg Al Hydrox/Mg Hydrox/Simethicone (Maalox) 30 ml PO Q4HR PRN PRN Reason: GI DISTRESS Stop: 12/14/16 03:27 Albuterol/Ipratropium (Duoneb Neb) 3 ml HHN Q4HR PRN PRN Reason: Shortness of Breath or Wheeze Stop: 12/14/16 08:26 Ascorbic Acid (Vitamin C) 500 mg PO DAILY NOY Stop: 12/14/16 08:59 Last Admin: 10/24/16 09:48 Dose: 500 mg Atorvastatin Calcium (Lipitor) 20 mg PO HS [facility] Stop: 12/14/16 20:59 Last Admin: 10/24/16 20:22 Dose: 20 mg Bisacodyl (Dulcolax 10 Mg Supp) 10 mg RC DAILY PRN PRN Reason: Constipation Stop: 12/14/16 08:26 Buspirone HCl (Buspar) 10 mg PO DAILY [facility] Stop: 12/14/16 16:59 Last Admin: 10/24/16 09:48 Dose: 10 mg Dextromethorphan/Quinidine (Nuedexta 20mg-10mg) 1 cap PO Q12HR [facility] Stop: 12/14/16 08:59 Last Admin: 10/24/16 20:21 Dose: 1 cap Divalproex Sodium (Depakote Sprinkle) 250 mg PO BID NOY PRN Reason: Protocol Stop: 12/14/16 08:59 Last Admin: 10/24/16 16:36 Dose: 250 mg Docusate Sodium (Colace) 100 mg PO DAILY NOY Stop: 12/14/16 08:59 Last Admin: 10/24/16 09:49 Dose: 100 mg Ibuprofen (Motrin) 600 mg PO BID NOY Stop: 12/14/16 08:59 Last Admin: 10/24/16 16:35 Dose: 600 mg Lorazepam (Ativan) 0.5 mg PO Q4HR PRN; Protocol PRN Reason: Anxiety Stop: 11/14/16 03:27 Last Admin: 10/24/16 20:22 Dose: 0.5 mg Magnesium Hydroxide (Milk Of Magnesia) 30 ml PO HS PRN PRN Reason: Constipation Magnesium Hydroxide (Milk Of Magnesia) 30 ml PO HS PRN PRN Reason: Constipation Stop: 12/14/16 08:26 Mirtazapine (Remeron) 15 mg PO HS NOY PRN Reason: Protocol Stop: 12/14/16 20:59 Last Admin: 10/24/16 20:22 Dose: 15 mg Multivitamins/Vitamin C (Theragran) 1 tab PO DAILY NOY Stop: 12/14/16 08:59 Last Admin: 10/24/16 09:49 Dose: 1 tab Oxybutynin Chloride (Ditropan Xl) 5 mg PO BID NOY Stop: 12/14/16 08:59 Last Admin: 10/24/16 16:36 Dose: 5 mg Pantoprazole Sodium (Protonix) 40 mg PO DAILY NOY Stop: 12/14/16 08:59 Last Admin: 10/24/16 09:49 Dose: 40 mg Quetiapine Fumarate (Seroquel) 200 mg PO HS NOY PRN Reason: Protocol Stop: 12/22/16 20:59 Last Admin: 10/24/16 20:22 Dose: 200 mg Quetiapine Fumarate (Seroquel) 100 mg PO BID NOY Stop: 12/22/16 08:59 Last Admin: 10/24/16 16:36 Dose: 100 mg Sodium Phosphate (Fleet Enema) 135 ml RC Q48HR PRN PRN Reason: Constipation Stop: 12/14/16 08:26 Zinc Sulfate (Zinc Sulfate) 220 mg PO DAILY NOY Stop: 12/14/16 08:59 Last Admin: 10/24/16 09:49 Dose: 220 mg Zolpidem Tartrate (Ambien) 5 mg PO HS PRN PRN Reason: Insomnia Stop: 12/14/16 03:27 Last Admin: 10/24/16 22:36 Dose: 5 mg General: Alert HEENT: Atraumatic Neck: Supple Cardiovascular: Regular rate Lungs: Clear to auscultation Abdomen: Bowel sounds Assessment/Plan - Problem List Patient Problems: All Active Problems Asthma (Acute) J45.909 COPD (chronic obstructive pulmonary disease) (Acute) Hyperlipidemia (Acute) E78.5 PBA (pseudobulbar affect) (Acute) F48.2 PVD (peripheral vascular disease) (Acute) I73.9 Psychosis (Acute) F29 TIA (transient ischemic attack) (Acute) - Assessment Assessment: See above - Plan Plan: Continue Current Treatment Nutritional Asmnt/Malnutr-PDOC - Dietary Evaluation Malnutrition Findings (Please click <Entered> for more info): Nutritional Asmnt/Malnutrition Start: 10/17/16 11: 20 Text: Status: Complete Freq: Document 10/17/16 11:20 GSUN (Rec: 10/17/16 11:46 [email or web address]) Nutritional Asmnt/Malnutrition Patient General Information Nutritional Screening Consult Diagnosis Reason for visit: psychosis Pertinent Medical Hx/Surgical Hx DM, asthma/COPD, TIA, hyperlipidemia, dementia, major depression, bipolar Subjective Information 71 [address] consult for right heel pressure ulcer . Pt was calm during visit, confusion noted, fixated on wanting to go home and taking shoes off (pt was not wearing shoes). Pt is edentulous, denied difficulties chewing/ swallowing. Pt usually with good appetite, avg PO intake 100% of meals yesterday, meeting nutritional needs. Explained to pt importance of nutrition for ulcer to heal, pt understood. Pt report UBW 115lb, pt appear closer to 140lb. Unable to weigh due to air loww mattress. Pt appear appropriate for age, no significant wasting noted. Current Diet Order/ Nutrition Support Regular, mech soft chopped Pertinent Medications Maalox, Vitamin C, Lipitor, Dulcolax, Colace, MOM, Remeron , Theragran, Protonix, Seroquel, Fleet Enema, Zinc Sulfate Pertinent Labs 10/14: creatinine 1.3H, glucose 116H POC glucose 145H, 98 Nutritional Hx/Data Height 1.57 m Height (Calculated Centimeters) 157.5 Current Weight (lbs) 65.771 kg Weight (Calculated Kilograms) 65.8 Weight (Calculated Grams) 23981.9 [place] Body Weight 110 Weight Status Overweight GI Symptoms Skin Integrity/Comment: Florencio 12. Woudn care 10/16: right heel acute on chronic pressure ulcer Current %PO Good (75-100%) Estimated Nutritional Goals Calories/Kcals/Kg EMR weight 145lb/65.9kg Kcals Calculated 1648-1977kcal (25-30kcal/kg) Protein Calculated 66-86g (1-1.3g/kg) Fluid: ml 1648-1977ml (1ml/kcal) Nutritional Problem 2. Problem Problem Altered nutrition related laboratory values related to Etiology DM aeb Signs/Symptoms: H&P, elevated glucose 1. Problem Problem Increased prot needs related to Etiology skin integrity aeb Signs/Symptoms: right heel pressure ulcer Intervention/Recommendation Comments 1. Recommend [id number] mech soft chopped. Avg PO intake is adequate. 2. Recommend 1 packet Arginaid for wound healing. Expected Outcomes/Goals Expected Outcomes/Goals 1. PO intake continue to meet at least 75% of estimated nutritional needs.
[2016-10-25] MEDS: Pantoprazole 40 mg EC Tab PO SCH (08:48)
[2016-10-25] MEDS: Multivitamin Tab PO SCH (08:49)
[2016-10-25] MEDS: Dextromethorphan/Quinidine 20mg/10mg Cap PO SCH ×2 (08:49→21:13)
[2016-10-25] MEDS: Oxybutynin Chloride 5 mg ER Tab PO SCH ×2 (08:50→16:26)
--- NOTE | 2016-10-25 20:04 | Progress Notes ---
DATE: 10/25/2016 SUBJECTIVE: Chart reviewed and the patient interviewed. Also discussed the patient's condition with the staff and reviewed records and labs. The patient seems to be slightly calmer than before and yelling and screaming episode is less, but she is suspicious and she is paranoid. The patient also is uncooperative with the staff and she is still in angry mood. The patient also is restless and she is hopeless and helpless. The patient also is talking to herself and seems to be disoriented. The patient did not sleep last night except for 4-5 hours according to the staff. ASSESSMENT: The patient is still agitated. TREATMENT PLAN: We will continue monitoring her behavior and her condition closely. Also, we will continue managing her psychotropic medications. Also, case management director continue to work on discharge plans and placement issue. JOB# [id number]
[2016-10-25] MEDS: Atorvastatin Calcium 10 MG TAB PO SCH (21:13)
[2016-10-26] MEDS: Multivitamin Tab PO SCH (08:45)
[2016-10-26] MEDS: Dextromethorphan/Quinidine 20mg/10mg Cap PO SCH ×2 (08:45→21:12)
[2016-10-26] MEDS: Oxybutynin Chloride 5 mg ER Tab PO SCH ×2 (08:45→16:51)
[2016-10-26] MEDS: Pantoprazole 40 mg EC Tab PO SCH (08:45)
--- NOTE | 2016-10-26 11:46 | Progress Notes ---
DATE: 10/26/2016 SUBJECTIVE: Chart reviewed and the patient interviewed. Also discussed the patient's condition with the staff and reviewed records and labs. The patient kept yelling and screaming constantly during my interview and she was calmer after quite some time ____ several trials to calm her down. The patient is still extremely agitated and irritable and needs lots of redirections. The patient also has difficulty expressing herself and expressing her needs. She also gets agitated and irritable easily when the staff tries to redirect her. Otherwise, the patient started to take her medications yesterday and this morning. ASSESSMENT: The patient is still psychotic and agitated and can be dangerous to others. TREATMENT PLAN: Continue monitoring her behavior and her condition closely. Also, continue psychotropic medications and followup. PSYCHIATRIC# [id number]
--- NOTE | 2016-10-26 20:02 | General Progress Note ---
Subjective - Review of Systems Service Date: 10/26/16 Subjective: Awake, Alert, Afebrile Objective - Results Result Diagrams: 10/14/16 22:35 10/14/16 22:35 Recent Labs: Laboratory Last Values WBC 7.1 Th/cmm (4.8-10.8) 10/14/16 22:35 RBC 3.62 Mil/cmm (3.80-5.20) L 10/14/16 22:35 Hgb 11.4 gm/dL (11.7-16.1) L 10/14/16 22:35 Hct 33.6 % (35.0-45.0) L 10/14/16 22:35 MCV 92.8 fl (81-100) 10/14/16 22:35 MCH 31.6 pg (27.0-31.0) H 10/14/16 22:35 MCHC Differential 34.0 pg (28.0-36.0) 10/14/16 22:35 RDW 13.4 % (11.5-20.0) 10/14/16 22:35 Plt Count 228 Th/cmm (150-400) 10/14/16 22:35 MPV 9.0 fl 10/14/16 22:35 Neutrophils % 56.8 % (40.0-80.0) 10/14/16 22:35 Lymphocytes % 24.4 % (20.0-50.0) 10/14/16 22:35 Monocytes % 9.0 % (2.0-10.0) 10/14/16 22:35 Eosinophils % 6.5 % (0.0-5.0) H 10/14/16 22:35 Basophils % 3.3 % (0.0-2.0) H 10/14/16 22:35 Sodium 139 mEq/L (136-145) 10/14/16 22:35 Potassium 3.9 mEq/L (3.5-5.1) 10/14/16 22:35 Chloride 108 mEq/L (98-107) H 10/14/16 22:35 Carbon Dioxide 27.3 mEq/L (21.0-31.0) 10/14/16 22:35 Anion Gap 7.6 (7.0-16.0) 10/14/16 22:35 BUN 25 mg/dL (7-25) 10/14/16 22:35 Creatinine 1.3 mg/dL (0.6-1.2) H 10/14/16 22:35 Est GFR ( Amer) TNP 10/14/16 22:35 Est GFR (Non-Af Amer) TNP 10/14/16 22:35 BUN/Creatinine Ratio 19.2 10/14/16 22:35 Glucose 116 mg/dL (70-105) H 10/14/16 22:35 POC Glucose 90 MG/DL (70 - 105) 10/20/16 06:38 Calcium 9.0 mg/dL (8.6-10.3) 10/14/16 22:35 Total Bilirubin 0.2 mg/dL (0.3-1.0) L 10/14/16 22:35 AST 11 U/L (13-39) L 10/14/16 22:35 ALT 5 U/L (7-52) L 10/14/16 22:35 Alkaline Phosphatase 48 U/L (34-104) 10/14/16 22:35 Troponin I < 0.01 ng/mL (0.01-0.05) L 10/14/16 22:35 Total Protein 6.2 gm/dL (6.0-8.3) 10/14/16 22:35 Albumin 3.5 gm/dL (3.7-5.3) L 10/14/16 22:35 Globulin 2.7 gm/dL 10/14/16 22:35 Albumin/Globulin Ratio 1.3 (1.0-1.8) 10/14/16 22:35 Triglycerides 107 mg/dL (<150) 10/14/16 22:35 Cholesterol 126 mg/dL (<200) 10/14/16 22:35 LDL Cholesterol Direct 69 mg/dL (75-193) L 10/14/16 22:35 HDL Cholesterol 36 mg/dL (23-92) 10/14/16 22:35 TSH 5.85 uIU/ml (0.34-5.60) H 10/14/16 22:35 Salicylates < 25.0 mg/L (30.0-100.0) L 10/14/16 22:35 Acetaminophen < 10.0 ug/mL (10.0-30.0) L 10/14/16 22:35 Valproic Acid 96.0 ug/mL (50.0-100.0) 10/14/16 22:35 Ethyl Alcohol < 10 mg/dL (0-10) 10/14/16 22:35 RPR NONREACTIVE (NONREACTIVE) 10/14/16 22:35 - Physical Exam Vitals and I&O: Vital Signs Temp 97.7 F 10/26/16 16:19 Pulse 74 10/26/16 16:19 Resp 20 10/26/16 16:19 BP 117/61 10/26/16 16:19 Pulse Ox 96 10/26/16 16:19 Intake & Output 10/26/16 10/26/16 10/27/16 06:59 18:59 06:59 Intake Total 900 Balance 900 Intake: Oral 900 Other: # Voids 4 # Bowel Movements 1 Active Medications: Current Medications Acetaminophen (Tylenol) 650 mg PO Q4HR PRN PRN Reason: MILD PAIN AND T>101F Stop: 12/14/16 08:26 Last Admin: 10/24/16 20:21 Dose: 650 mg Al Hydrox/Mg Hydrox/Simethicone (Maalox) 30 ml PO Q4HR PRN PRN Reason: GI DISTRESS Stop: 12/14/16 03:27 Albuterol/Ipratropium (Duoneb Neb) 3 ml HHN Q4HR PRN PRN Reason: Shortness of Breath or Wheeze Stop: 12/14/16 08:26 Ascorbic Acid (Vitamin C) 500 mg PO DAILY [facility] Stop: 12/14/16 08:59 Last Admin: 10/26/16 08:45 Dose: 500 mg Atorvastatin Calcium (Lipitor) 20 mg PO HS [facility] Stop: 12/14/16 20:59 Last Admin: 10/25/16 21:13 Dose: 20 mg Bisacodyl (Dulcolax 10 Mg Supp) 10 mg RC DAILY PRN PRN Reason: Constipation Stop: 12/14/16 08:26 Buspirone HCl (Buspar) 10 mg PO DAILY [facility] Stop: 12/14/16 16:59 Last Admin: 10/26/16 08:46 Dose: 10 mg Dextromethorphan/Quinidine (Nuedexta 20mg-10mg) 1 cap PO Q12HR NOY Stop: 12/14/16 08:59 Last Admin: 10/26/16 08:45 Dose: 1 cap Divalproex Sodium (Depakote Sprinkle) 250 mg PO BID NOY PRN Reason: Protocol Stop: 12/14/16 08:59 Last Admin: 10/26/16 16:52 Dose: 250 mg Docusate Sodium (Colace) 100 mg PO DAILY NOY Stop: 12/14/16 08:59 Last Admin: 10/26/16 08:45 Dose: 100 mg Ibuprofen (Motrin) 600 mg PO BID NOY Stop: 12/14/16 08:59 Last Admin: 10/26/16 16:51 Dose: 600 mg Lorazepam (Ativan) 0.5 mg PO Q4HR PRN; Protocol PRN Reason: Anxiety Stop: 11/14/16 03:27 Last Admin: 10/25/16 16:26 Dose: 0.5 mg Magnesium Hydroxide (Milk Of Magnesia) 30 ml PO HS PRN PRN Reason: Constipation Magnesium Hydroxide (Milk Of Magnesia) 30 ml PO HS PRN PRN Reason: Constipation Stop: 12/14/16 08:26 Mirtazapine (Remeron) 15 mg PO HS NOY PRN Reason: Protocol Stop: 12/14/16 20:59 Last Admin: 10/25/16 21:13 Dose: 15 mg Multivitamins/Vitamin C (Theragran) 1 tab PO DAILY NOY Stop: 12/14/16 08:59 Last Admin: 10/26/16 08:45 Dose: 1 tab Oxybutynin Chloride (Ditropan Xl) 5 mg PO BID NOY Stop: 12/14/16 08:59 Last Admin: 10/26/16 16:51 Dose: 5 mg Pantoprazole Sodium (Protonix) 40 mg PO DAILY NOY Stop: 12/14/16 08:59 Last Admin: 10/26/16 08:45 Dose: 40 mg Quetiapine Fumarate (Seroquel) 200 mg PO HS NOY PRN Reason: Protocol Stop: 12/22/16 20:59 Last Admin: 10/25/16 21:13 Dose: 200 mg Quetiapine Fumarate (Seroquel) 100 mg PO BID NOY Stop: 12/22/16 08:59 Last Admin: 10/26/16 16:54 Dose: 100 mg Sodium Phosphate (Fleet Enema) 135 ml RC Q48HR PRN PRN Reason: Constipation Stop: 12/14/16 08:26 Zinc Sulfate (Zinc Sulfate) 220 mg PO DAILY NOY Stop: 12/14/16 08:59 Last Admin: 10/26/16 08:45 Dose: 220 mg Zolpidem Tartrate (Ambien) 5 mg PO HS PRN PRN Reason: Insomnia Stop: 12/14/16 03:27 Last Admin: 10/24/16 22:36 Dose: 5 mg General: Alert HEENT: Atraumatic Neck: Supple Cardiovascular: Regular rate Lungs: Clear to auscultation Abdomen: Bowel sounds Assessment/Plan - Problem List Patient Problems: All Active Problems Asthma (Acute) J45.909 COPD (chronic obstructive pulmonary disease) (Acute) Hyperlipidemia (Acute) E78.5 PBA (pseudobulbar affect) (Acute) F48.2 PVD (peripheral vascular disease) (Acute) I73.9 Psychosis (Acute) F29 TIA (transient ischemic attack) (Acute) - Assessment Assessment: See above - Plan Plan: Continue Current Treatment Nutritional Asmnt/Malnutr-PDOC - Dietary Evaluation Malnutrition Findings (Please click <Entered> for more info): Nutritional Asmnt/Malnutrition Start: 10/17/16 11: 20 Text: Status: Complete Freq: Document 10/17/16 11:20 GSUN (Rec: 10/17/16 11:46 [email or web address]) Nutritional Asmnt/Malnutrition Patient General Information Nutritional Screening Consult Diagnosis Reason for visit: psychosis Pertinent Medical Hx/Surgical Hx DM, asthma/COPD, TIA, hyperlipidemia, dementia, major depression, bipolar Subjective Information 71 [address] consult for right heel pressure ulcer . Pt was calm during visit, confusion noted, fixated on wanting to go home and taking shoes off (pt was not wearing shoes). Pt is edentulous, denied difficulties chewing/ swallowing. Pt usually with good appetite, avg PO intake 100% of meals yesterday, meeting nutritional needs. Explained to pt importance of nutrition for ulcer to heal, pt understood. Pt report UBW 115lb, pt appear closer to 140lb. Unable to weigh due to air loww mattress. Pt appear appropriate for age, no significant wasting noted. Current Diet Order/ Nutrition Support Regular, mech soft chopped Pertinent Medications Maalox, Vitamin C, Lipitor, Dulcolax, Colace, MOM, Remeron , Theragran, Protonix, Seroquel, Fleet Enema, Zinc Sulfate Pertinent Labs 10/14: creatinine 1.3H, glucose 116H POC glucose 145H, 98 Nutritional Hx/Data Height 1.57 m Height (Calculated Centimeters) 157.5 Current Weight (lbs) 65.771 kg Weight (Calculated Kilograms) 65.8 Weight (Calculated Grams) 68082.9 Abbott Body Weight 110 Weight Status Overweight GI Symptoms Skin Integrity/Comment: Florencio 12. Woudn care 10/16: right heel acute on chronic pressure ulcer Current %PO Good (75-100%) Estimated Nutritional Goals Calories/Kcals/Kg EMR weight 145lb/65.9kg Kcals Calculated 1648-1977kcal (25-30kcal/kg) Protein Calculated 66-86g (1-1.3g/kg) Fluid: ml 1648-1977ml (1ml/kcal) Nutritional Problem 2. Problem Problem Altered nutrition related laboratory values related to Etiology DM aeb Signs/Symptoms: H&P, elevated glucose 1. Problem Problem Increased prot needs related to Etiology skin integrity aeb Signs/Symptoms: right heel pressure ulcer Intervention/Recommendation Comments 1. Recommend [id number] mech soft chopped. Avg PO intake is adequate. 2. Recommend 1 packet Arginaid for wound healing. Expected Outcomes/Goals Expected Outcomes/Goals 1. PO intake continue to meet at least 75% of estimated nutritional needs.
[2016-10-26] MEDS: Atorvastatin Calcium 10 MG TAB PO SCH (21:12)
--- NOTE | 2016-10-27 08:01 | General Progress Note ---
Subjective - Review of Systems Service Date: 10/27/16 Subjective: Awake, Alert, Afebrile. No new changes. Objective - Results Result Diagrams: 10/14/16 22:35 10/14/16 22:35 Recent Labs: Laboratory Last Values WBC 7.1 Th/cmm (4.8-10.8) 10/14/16 22:35 RBC 3.62 Mil/cmm (3.80-5.20) L 10/14/16 22:35 Hgb 11.4 gm/dL (11.7-16.1) L 10/14/16 22:35 Hct 33.6 % (35.0-45.0) L 10/14/16 22:35 MCV 92.8 fl (81-100) 10/14/16 22:35 MCH 31.6 pg (27.0-31.0) H 10/14/16 22:35 MCHC Differential 34.0 pg (28.0-36.0) 10/14/16 22:35 RDW 13.4 % (11.5-20.0) 10/14/16 22:35 Plt Count 228 Th/cmm (150-400) 10/14/16 22:35 MPV 9.0 fl 10/14/16 22:35 Neutrophils % 56.8 % (40.0-80.0) 10/14/16 22:35 Lymphocytes % 24.4 % (20.0-50.0) 10/14/16 22:35 Monocytes % 9.0 % (2.0-10.0) 10/14/16 22:35 Eosinophils % 6.5 % (0.0-5.0) H 10/14/16 22:35 Basophils % 3.3 % (0.0-2.0) H 10/14/16 22:35 Sodium 139 mEq/L (136-145) 10/14/16 22:35 Potassium 3.9 mEq/L (3.5-5.1) 10/14/16 22:35 Chloride 108 mEq/L (98-107) H 10/14/16 22:35 Carbon Dioxide 27.3 mEq/L (21.0-31.0) 10/14/16 22:35 Anion Gap 7.6 (7.0-16.0) 10/14/16 22:35 BUN 25 mg/dL (7-25) 10/14/16 22:35 Creatinine 1.3 mg/dL (0.6-1.2) H 10/14/16 22:35 Est GFR ( Amer) TNP 10/14/16 22:35 Est GFR (Non-Af Amer) TNP 10/14/16 22:35 BUN/Creatinine Ratio 19.2 10/14/16 22:35 Glucose 116 mg/dL (70-105) H 10/14/16 22:35 POC Glucose 90 MG/DL (70 - 105) 10/20/16 06:38 Calcium 9.0 mg/dL (8.6-10.3) 10/14/16 22:35 Total Bilirubin 0.2 mg/dL (0.3-1.0) L 10/14/16 22:35 AST 11 U/L (13-39) L 10/14/16 22:35 ALT 5 U/L (7-52) L 10/14/16 22:35 Alkaline Phosphatase 48 U/L (34-104) 10/14/16 22:35 Troponin I < 0.01 ng/mL (0.01-0.05) L 10/14/16 22:35 Total Protein 6.2 gm/dL (6.0-8.3) 10/14/16 22:35 Albumin 3.5 gm/dL (3.7-5.3) L 10/14/16 22:35 Globulin 2.7 gm/dL 10/14/16 22:35 Albumin/Globulin Ratio 1.3 (1.0-1.8) 10/14/16 22:35 Triglycerides 107 mg/dL (<150) 10/14/16 22:35 Cholesterol 126 mg/dL (<200) 10/14/16 22:35 LDL Cholesterol Direct 69 mg/dL (75-193) L 10/14/16 22:35 HDL Cholesterol 36 mg/dL (23-92) 10/14/16 22:35 TSH 5.85 uIU/ml (0.34-5.60) H 10/14/16 22:35 Salicylates < 25.0 mg/L (30.0-100.0) L 10/14/16 22:35 Acetaminophen < 10.0 ug/mL (10.0-30.0) L 10/14/16 22:35 Valproic Acid 96.0 ug/mL (50.0-100.0) 10/14/16 22:35 Ethyl Alcohol < 10 mg/dL (0-10) 10/14/16 22:35 RPR NONREACTIVE (NONREACTIVE) 10/14/16 22:35 - Physical Exam Vitals and I&O: Vital Signs Temp 96.7 F 10/27/16 06:03 Pulse 68 10/27/16 06:03 Resp 19 10/27/16 06:03 BP 104/52 10/27/16 06:03 Pulse Ox 95 10/27/16 06:03 Intake & Output 10/26/16 10/27/16 10/27/16 18:59 06:59 18:59 Intake Total 900 Balance 900 Intake: Oral 900 Other: # Voids 4 # Bowel Movements 1 Active Medications: Current Medications Acetaminophen (Tylenol) 650 mg PO Q4HR PRN PRN Reason: MILD PAIN AND T>101F Stop: 12/14/16 08:26 Last Admin: 10/24/16 20:21 Dose: 650 mg Al Hydrox/Mg Hydrox/Simethicone (Maalox) 30 ml PO Q4HR PRN PRN Reason: GI DISTRESS Stop: 12/14/16 03:27 Albuterol/Ipratropium (Duoneb Neb) 3 ml HHN Q4HR PRN PRN Reason: Shortness of Breath or Wheeze Stop: 12/14/16 08:26 Ascorbic Acid (Vitamin C) 500 mg PO DAILY [facility] Stop: 12/14/16 08:59 Last Admin: 10/26/16 08:45 Dose: 500 mg Atorvastatin Calcium (Lipitor) 20 mg PO HS [facility] Stop: 12/14/16 20:59 Last Admin: 10/26/16 21:12 Dose: 20 mg Bisacodyl (Dulcolax 10 Mg Supp) 10 mg RC DAILY PRN PRN Reason: Constipation Stop: 12/14/16 08:26 Buspirone HCl (Buspar) 10 mg PO DAILY [facility] Stop: 12/14/16 16:59 Last Admin: 10/26/16 08:46 Dose: 10 mg Dextromethorphan/Quinidine (Nuedexta 20mg-10mg) 1 cap PO Q12HR [facility] Stop: 12/14/16 08:59 Last Admin: 10/26/16 21:12 Dose: 1 cap Divalproex Sodium (Depakote Sprinkle) 250 mg PO BID NOY PRN Reason: Protocol Stop: 12/14/16 08:59 Last Admin: 10/26/16 16:52 Dose: 250 mg Docusate Sodium (Colace) 100 mg PO DAILY NO[facility] Stop: 12/14/16 08:59 Last Admin: 10/26/16 08:45 Dose: 100 mg Ibuprofen (Motrin) 600 mg PO BID NOY Stop: 12/14/16 08:59 Last Admin: 10/26/16 16:51 Dose: 600 mg Lorazepam (Ativan) 0.5 mg PO Q4HR PRN; Protocol PRN Reason: Anxiety Stop: 11/14/16 03:27 Last Admin: 10/26/16 21:12 Dose: 0.5 mg Magnesium Hydroxide (Milk Of Magnesia) 30 ml PO HS PRN PRN Reason: Constipation Magnesium Hydroxide (Milk Of Magnesia) 30 ml PO HS PRN PRN Reason: Constipation Stop: 12/14/16 08:26 Mirtazapine (Remeron) 15 mg PO HS NOY PRN Reason: Protocol Stop: 12/14/16 20:59 Last Admin: 10/26/16 21:13 Dose: 15 mg Multivitamins/Vitamin C (Theragran) 1 tab PO DAILY NOY Stop: 12/14/16 08:59 Last Admin: 10/26/16 08:45 Dose: 1 tab Oxybutynin Chloride (Ditropan Xl) 5 mg PO BID NOY Stop: 12/14/16 08:59 Last Admin: 10/26/16 16:51 Dose: 5 mg Pantoprazole Sodium (Protonix) 40 mg PO DAILY NOY Stop: 12/14/16 08:59 Last Admin: 10/26/16 08:45 Dose: 40 mg Quetiapine Fumarate (Seroquel) 200 mg PO HS NOY PRN Reason: Protocol Stop: 12/22/16 20:59 Last Admin: 10/26/16 21:12 Dose: 200 mg Quetiapine Fumarate (Seroquel) 100 mg PO BID NOY Stop: 12/22/16 08:59 Last Admin: 10/26/16 16:54 Dose: 100 mg Sodium Phosphate (Fleet Enema) 135 ml RC Q48HR PRN PRN Reason: Constipation Stop: 12/14/16 08:26 Zinc Sulfate (Zinc Sulfate) 220 mg PO DAILY NO[facility] Stop: 12/14/16 08:59 Last Admin: 10/26/16 08:45 Dose: 220 mg Zolpidem Tartrate (Ambien) 5 mg PO HS PRN PRN Reason: Insomnia Stop: 12/14/16 03:27 Last Admin: 10/24/16 22:36 Dose: 5 mg General: Alert HEENT: Atraumatic Neck: Supple Cardiovascular: Regular rate Lungs: Clear to auscultation Abdomen: Bowel sounds Assessment/Plan - Problem List Patient Problems: All Active Problems Asthma (Acute) J45.909 COPD (chronic obstructive pulmonary disease) (Acute) Hyperlipidemia (Acute) E78.5 PBA (pseudobulbar affect) (Acute) F48.2 PVD (peripheral vascular disease) (Acute) I73.9 Psychosis (Acute) F29 TIA (transient ischemic attack) (Acute) - Assessment Assessment: See above - Plan Plan: Continue Current Treatment Nutritional Asmnt/Malnutr-PDOC - Dietary Evaluation Malnutrition Findings (Please click <Entered> for more info): Nutritional Asmnt/Malnutrition Start: 10/17/16 11: 20 Text: Status: Complete Freq: Document 10/17/16 11:20 GSUN (Rec: 10/17/16 11:46 GSFELICIA [email or web address]) Nutritional Asmnt/Malnutrition Patient General Information Nutritional Screening Consult Diagnosis Reason for visit: psychosis Pertinent Medical Hx/Surgical Hx DM, asthma/COPD, TIA, hyperlipidemia, dementia, major depression, bipolar Subjective Information 71 [address] consult for right heel pressure ulcer . Pt was calm during visit, confusion noted, fixated on wanting to go home and taking shoes off (pt was not wearing shoes). Pt is edentulous, denied difficulties chewing/ swallowing. Pt usually with good appetite, avg PO intake 100% of meals yesterday, meeting nutritional needs. Explained to pt importance of nutrition for ulcer to heal, pt understood. Pt report UBW 115lb, pt appear closer to 140lb. Unable to weigh due to air loww mattress. Pt appear appropriate for age, no significant wasting noted. Current Diet Order/ Nutrition Support Regular, mech soft chopped Pertinent Medications Maalox, Vitamin C, Lipitor, Dulcolax, Colace, MOM, Remeron , Theragran, Protonix, Seroquel, Fleet Enema, Zinc Sulfate Pertinent Labs 10/14: creatinine 1.3H, glucose 116H POC glucose 145H, 98 Nutritional Hx/Data Height 1.57 m Height (Calculated Centimeters) 157.5 Current Weight (lbs) 65.771 kg Weight (Calculated Kilograms) 65.8 Weight (Calculated Grams) 16224.9 [place] Body Weight 110 Weight Status Overweight GI Symptoms Skin Integrity/Comment: Florencio 12. Woudn care 10/16: right heel acute on chronic pressure ulcer Current %PO Good (75-100%) Estimated Nutritional Goals Calories/Kcals/Kg EMR weight 145lb/65.9kg Kcals Calculated 1648-1977kcal (25-30kcal/kg) Protein Calculated 66-86g (1-1.3g/kg) Fluid: ml 1648-1977ml (1ml/kcal) Nutritional Problem 2. Problem Problem Altered nutrition related laboratory values related to Etiology DM aeb Signs/Symptoms: H&P, elevated glucose 1. Problem Problem Increased prot needs related to Etiology skin integrity aeb Signs/Symptoms: right heel pressure ulcer Intervention/Recommendation Comments 1. Recommend [id number] mech soft chopped. Avg PO intake is adequate. 2. Recommend 1 packet Arginaid for wound healing. Expected Outcomes/Goals Expected Outcomes/Goals 1. PO intake continue to meet at least 75% of estimated nutritional needs.
[2016-10-27] MEDS: Multivitamin Tab PO SCH (08:56)
[2016-10-27] MEDS: Dextromethorphan/Quinidine 20mg/10mg Cap PO SCH ×2 (08:57→20:59)
[2016-10-27] MEDS: Pantoprazole 40 mg EC Tab PO SCH (09:07)
[2016-10-27] MEDS: Oxybutynin Chloride 5 mg ER Tab PO SCH ×2 (09:08→16:28)
--- NOTE | 2016-10-27 10:59 | Progress Notes ---
DATE: 10/27/[address] Singh. SUBJECTIVE: Case was discussed with staff of the patient, reviewed records. This is a 71-year-old female who was admitted on 10/15/2016. Diagnosed with bipolar disorder, mixed with psychosis. She is being confused, yelling, and screaming, unpredictable, impulsive, labile, needing redirection. She is on BuSpar 10 mg daily, Nuedexta 1 tablet twice a day, Depakote 250 mg twice a day, Remeron 50 mg at bedtime, Seroquel 200 mg at bedtime, with no side effects, no sedation, no nausea, no extrapyramidal symptoms. We will continue to work with the patient in group therapy, milieu therapy, adjust the medication as needed. [facility]# [id number]
[2016-10-27] MEDS: Atorvastatin Calcium 10 MG TAB PO SCH (20:57)
--- NOTE | 2016-10-28 07:56 | General Progress Note ---
Subjective - Review of Systems Service Date: 10/28/16 Subjective: Awake, Alert, Afebrile. No new changes. Objective - Results Result Diagrams: 10/14/16 22:35 10/14/16 22:35 Recent Labs: Laboratory Last Values WBC 7.1 Th/cmm (4.8-10.8) 10/14/16 22:35 RBC 3.62 Mil/cmm (3.80-5.20) L 10/14/16 22:35 Hgb 11.4 gm/dL (11.7-16.1) L 10/14/16 22:35 Hct 33.6 % (35.0-45.0) L 10/14/16 22:35 MCV 92.8 fl (81-100) 10/14/16 22:35 MCH 31.6 pg (27.0-31.0) H 10/14/16 22:35 MCHC Differential 34.0 pg (28.0-36.0) 10/14/16 22:35 RDW 13.4 % (11.5-20.0) 10/14/16 22:35 Plt Count 228 Th/cmm (150-400) 10/14/16 22:35 MPV 9.0 fl 10/14/16 22:35 Neutrophils % 56.8 % (40.0-80.0) 10/14/16 22:35 Lymphocytes % 24.4 % (20.0-50.0) 10/14/16 22:35 Monocytes % 9.0 % (2.0-10.0) 10/14/16 22:35 Eosinophils % 6.5 % (0.0-5.0) H 10/14/16 22:35 Basophils % 3.3 % (0.0-2.0) H 10/14/16 22:35 Sodium 139 mEq/L (136-145) 10/14/16 22:35 Potassium 3.9 mEq/L (3.5-5.1) 10/14/16 22:35 Chloride 108 mEq/L (98-107) H 10/14/16 22:35 Carbon Dioxide 27.3 mEq/L (21.0-31.0) 10/14/16 22:35 Anion Gap 7.6 (7.0-16.0) 10/14/16 22:35 BUN 25 mg/dL (7-25) 10/14/16 22:35 Creatinine 1.3 mg/dL (0.6-1.2) H 10/14/16 22:35 Est GFR ( Amer) TNP 10/14/16 22:35 Est GFR (Non-Af Amer) TNP 10/14/16 22:35 BUN/Creatinine Ratio 19.2 10/14/16 22:35 Glucose 116 mg/dL (70-105) H 10/14/16 22:35 POC Glucose 90 MG/DL (70 - 105) 10/20/16 06:38 Calcium 9.0 mg/dL (8.6-10.3) 10/14/16 22:35 Total Bilirubin 0.2 mg/dL (0.3-1.0) L 10/14/16 22:35 AST 11 U/L (13-39) L 10/14/16 22:35 ALT 5 U/L (7-52) L 10/14/16 22:35 Alkaline Phosphatase 48 U/L (34-104) 10/14/16 22:35 Troponin I < 0.01 ng/mL (0.01-0.05) L 10/14/16 22:35 Total Protein 6.2 gm/dL (6.0-8.3) 10/14/16 22:35 Albumin 3.5 gm/dL (3.7-5.3) L 10/14/16 22:35 Globulin 2.7 gm/dL 10/14/16 22:35 Albumin/Globulin Ratio 1.3 (1.0-1.8) 10/14/16 22:35 Triglycerides 107 mg/dL (<150) 10/14/16 22:35 Cholesterol 126 mg/dL (<200) 10/14/16 22:35 LDL Cholesterol Direct 69 mg/dL (75-193) L 10/14/16 22:35 HDL Cholesterol 36 mg/dL (23-92) 10/14/16 22:35 TSH 5.85 uIU/ml (0.34-5.60) H 10/14/16 22:35 Salicylates < 25.0 mg/L (30.0-100.0) L 10/14/16 22:35 Acetaminophen < 10.0 ug/mL (10.0-30.0) L 10/14/16 22:35 Valproic Acid 96.0 ug/mL (50.0-100.0) 10/14/16 22:35 Ethyl Alcohol < 10 mg/dL (0-10) 10/14/16 22:35 RPR NONREACTIVE (NONREACTIVE) 10/14/16 22:35 - Physical Exam Vitals and I&O: Vital Signs Temp 97.7 F 10/28/16 05:59 Pulse 65 10/28/16 05:59 Resp 18 10/28/16 05:59 BP 142/79 10/28/16 05:59 Pulse Ox 98 10/28/16 05:59 Intake & Output 10/27/16 10/28/16 10/28/16 18:59 06:59 18:59 Intake Total 1400 Balance 1400 Intake: Oral 1400 Other: # Voids 3 # Bowel Movements 1 Active Medications: Current Medications Acetaminophen (Tylenol) 650 mg PO Q4HR PRN PRN Reason: MILD PAIN AND T>101F Stop: 12/14/16 08:26 Last Admin: 10/24/16 20:21 Dose: 650 mg Al Hydrox/Mg Hydrox/Simethicone (Maalox) 30 ml PO Q4HR PRN PRN Reason: GI DISTRESS Stop: 12/14/16 03:27 Albuterol/Ipratropium (Duoneb Neb) 3 ml HHN Q4HR PRN PRN Reason: Shortness of Breath or Wheeze Stop: 12/14/16 08:26 Ascorbic Acid (Vitamin C) 500 mg PO DAILY [facility] Stop: 12/14/16 08:59 Last Admin: 10/27/16 08:56 Dose: 500 mg Atorvastatin Calcium (Lipitor) 20 mg PO HS [facility] Stop: 12/14/16 20:59 Last Admin: 10/27/16 20:57 Dose: 20 mg Bisacodyl (Dulcolax 10 Mg Supp) 10 mg RC DAILY PRN PRN Reason: Constipation Stop: 12/14/16 08:26 Buspirone HCl (Buspar) 10 mg PO DAILY [facility] Stop: 12/14/16 16:59 Last Admin: 10/27/16 08:56 Dose: 10 mg Dextromethorphan/Quinidine (Nuedexta 20mg-10mg) 1 cap PO Q12HR [facility] Stop: 12/14/16 08:59 Last Admin: 10/27/16 20:59 Dose: 1 cap Divalproex Sodium (Depakote Sprinkle) 250 mg PO BID NOY PRN Reason: Protocol Stop: 12/14/16 08:59 Last Admin: 10/27/16 16:28 Dose: 250 mg Docusate Sodium (Colace) 100 mg PO DAILY NOY Stop: 12/14/16 08:59 Last Admin: 10/27/16 08:57 Dose: 100 mg Ibuprofen (Motrin) 600 mg PO BID NOY Stop: 12/14/16 08:59 Last Admin: 10/27/16 16:28 Dose: 600 mg Lorazepam (Ativan) 0.5 mg PO Q4HR PRN; Protocol PRN Reason: Anxiety Stop: 11/14/16 03:27 Last Admin: 10/26/16 21:12 Dose: 0.5 mg Magnesium Hydroxide (Milk Of Magnesia) 30 ml PO HS PRN PRN Reason: Constipation Magnesium Hydroxide (Milk Of Magnesia) 30 ml PO HS PRN PRN Reason: Constipation Stop: 12/14/16 08:26 Mirtazapine (Remeron) 15 mg PO HS NOY PRN Reason: Protocol Stop: 12/14/16 20:59 Last Admin: 10/27/16 20:59 Dose: 15 mg Multivitamins/Vitamin C (Theragran) 1 tab PO DAILY NOY Stop: 12/14/16 08:59 Last Admin: 10/27/16 08:56 Dose: 1 tab Oxybutynin Chloride (Ditropan Xl) 5 mg PO BID NOY Stop: 12/14/16 08:59 Last Admin: 10/27/16 16:28 Dose: 5 mg Pantoprazole Sodium (Protonix) 40 mg PO DAILY NOY Stop: 12/14/16 08:59 Last Admin: 10/27/16 09:07 Dose: 40 mg Quetiapine Fumarate (Seroquel) 200 mg PO HS NOY PRN Reason: Protocol Stop: 12/22/16 20:59 Last Admin: 10/27/16 20:59 Dose: 200 mg Quetiapine Fumarate (Seroquel) 100 mg PO BID NOY Stop: 12/22/16 08:59 Last Admin: 10/27/16 16:29 Dose: 100 mg Sodium Phosphate (Fleet Enema) 135 ml RC Q48HR PRN PRN Reason: Constipation Stop: 12/14/16 08:26 Zinc Sulfate (Zinc Sulfate) 220 mg PO DAILY NOY Stop: 12/14/16 08:59 Last Admin: 10/27/16 08:56 Dose: 220 mg Zolpidem Tartrate (Ambien) 5 mg PO HS PRN PRN Reason: Insomnia Stop: 12/14/16 03:27 Last Admin: 10/24/16 22:36 Dose: 5 mg General: Alert HEENT: Atraumatic Neck: Supple Cardiovascular: Regular rate Lungs: Clear to auscultation Abdomen: Bowel sounds Assessment/Plan - Problem List Patient Problems: All Active Problems Asthma (Acute) J45.909 COPD (chronic obstructive pulmonary disease) (Acute) Hyperlipidemia (Acute) E78.5 PBA (pseudobulbar affect) (Acute) F48.2 PVD (peripheral vascular disease) (Acute) I73.9 Psychosis (Acute) F29 TIA (transient ischemic attack) (Acute) - Assessment Assessment: See above - Plan Plan: Continue Current Treatment Nutritional Asmnt/Malnutr-PDOC - Dietary Evaluation Malnutrition Findings (Please click <Entered> for more info): Nutritional Asmnt/Malnutrition Start: 10/17/16 11: 20 Text: Status: Complete Freq: Document 10/17/16 11:20 GSUN (Rec: 10/17/16 11:46 [email or web address]) Nutritional Asmnt/Malnutrition Patient General Information Nutritional Screening Consult Diagnosis Reason for visit: psychosis Pertinent Medical Hx/Surgical Hx DM, asthma/COPD, TIA, hyperlipidemia, dementia, major depression, bipolar Subjective Information 71 [address] consult for right heel pressure ulcer . Pt was calm during visit, confusion noted, fixated on wanting to go home and taking shoes off (pt was not wearing shoes). Pt is edentulous, denied difficulties chewing/ swallowing. Pt usually with good appetite, avg PO intake 100% of meals yesterday, meeting nutritional needs. Explained to pt importance of nutrition for ulcer to heal, pt understood. Pt report UBW 115lb, pt appear closer to 140lb. Unable to weigh due to air loww mattress. Pt appear appropriate for age, no significant wasting noted. Current Diet Order/ Nutrition Support Regular, mech soft chopped Pertinent Medications Maalox, Vitamin C, Lipitor, Dulcolax, Colace, MOM, Remeron , Theragran, Protonix, Seroquel, Fleet Enema, Zinc Sulfate Pertinent Labs 10/14: creatinine 1.3H, glucose 116H POC glucose 145H, 98 Nutritional Hx/Data Height 1.57 m Height (Calculated Centimeters) 157.5 Current Weight (lbs) 65.771 kg Weight (Calculated Kilograms) 65.8 Weight (Calculated Grams) 63377.9 [place] Body Weight 110 Weight Status Overweight GI Symptoms Skin Integrity/Comment: Florencio 12. Woudn care 10/16: right heel acute on chronic pressure ulcer Current %PO Good (75-100%) Estimated Nutritional Goals Calories/Kcals/Kg EMR weight 145lb/65.9kg Kcals Calculated 1648-1977kcal (25-30kcal/kg) Protein Calculated 66-86g (1-1.3g/kg) Fluid: ml 1648-1977ml (1ml/kcal) Nutritional Problem 2. Problem Problem Altered nutrition related laboratory values related to Etiology DM aeb Signs/Symptoms: H&P, elevated glucose 1. Problem Problem Increased prot needs related to Etiology skin integrity aeb Signs/Symptoms: right heel pressure ulcer Intervention/Recommendation Comments 1. Recommend [id number] mech soft chopped. Avg PO intake is adequate. 2. Recommend 1 packet Arginaid for wound healing. Expected Outcomes/Goals Expected Outcomes/Goals 1. PO intake continue to meet at least 75% of estimated nutritional needs.
[2016-10-28] MEDS: Pantoprazole 40 mg EC Tab PO SCH (08:42)
[2016-10-28] MEDS: Oxybutynin Chloride 5 mg ER Tab PO SCH ×2 (08:44→16:54)
[2016-10-28] MEDS: Dextromethorphan/Quinidine 20mg/10mg Cap PO SCH ×2 (08:44→20:36)
[2016-10-28] MEDS: Multivitamin Tab PO SCH (08:44)
[2016-10-28] MEDS: Atorvastatin Calcium 10 MG TAB PO SCH (20:36)
--- NOTE | 2016-10-29 04:44 | Progress Notes ---
DATE: 10/28/2016 SUBJECTIVE: Case was discussed with staff of the patient, reviewed records. The patient continues to be confused, continues to have episodes of yelling and screaming. Continues to have poor insight. Unable to make safe plan for self care, but compared to two days ago the staff report her yelling was not as bad, and I can to it in the past few days she was screaming all the time and now you can hardly hear her voice, so she is starting to show some progress. Still unable to make safe plan for self care, unpredictable, impulsive. No side effects with the medication, no sedation, no nausea, no extrapyramidal symptoms. We will continue to work with the patient in group therapy, milieu therapy, and adjust medication as needed. JOB# [id number]
--- NOTE | 2016-10-29 08:26 | General Progress Note ---
Subjective - Review of Systems Service Date: 10/29/16 Subjective: Awake, Alert, Afebrile. No new changes. Patient medically stable. Objective - Results Result Diagrams: 10/14/16 22:35 10/14/16 22:35 Recent Labs: Laboratory Last Values WBC 7.1 Th/cmm (4.8-10.8) 10/14/16 22:35 RBC 3.62 Mil/cmm (3.80-5.20) L 10/14/16 22:35 Hgb 11.4 gm/dL (11.7-16.1) L 10/14/16 22:35 Hct 33.6 % (35.0-45.0) L 10/14/16 22:35 MCV 92.8 fl (81-100) 10/14/16 22:35 MCH 31.6 pg (27.0-31.0) H 10/14/16 22:35 MCHC Differential 34.0 pg (28.0-36.0) 10/14/16 22:35 RDW 13.4 % (11.5-20.0) 10/14/16 22:35 Plt Count 228 Th/cmm (150-400) 10/14/16 22:35 MPV 9.0 fl 10/14/16 22:35 Neutrophils % 56.8 % (40.0-80.0) 10/14/16 22:35 Lymphocytes % 24.4 % (20.0-50.0) 10/14/16 22:35 Monocytes % 9.0 % (2.0-10.0) 10/14/16 22:35 Eosinophils % 6.5 % (0.0-5.0) H 10/14/16 22:35 Basophils % 3.3 % (0.0-2.0) H 10/14/16 22:35 Sodium 139 mEq/L (136-145) 10/14/16 22:35 Potassium 3.9 mEq/L (3.5-5.1) 10/14/16 22:35 Chloride 108 mEq/L (98-107) H 10/14/16 22:35 Carbon Dioxide 27.3 mEq/L (21.0-31.0) 10/14/16 22:35 Anion Gap 7.6 (7.0-16.0) 10/14/16 22:35 BUN 25 mg/dL (7-25) 10/14/16 22:35 Creatinine 1.3 mg/dL (0.6-1.2) H 10/14/16 22:35 Est GFR ( Amer) TNP 10/14/16 22:35 Est GFR (Non-Af Amer) TNP 10/14/16 22:35 BUN/Creatinine Ratio 19.2 10/14/16 22:35 Glucose 116 mg/dL (70-105) H 10/14/16 22:35 POC Glucose 90 MG/DL (70 - 105) 10/20/16 06:38 Calcium 9.0 mg/dL (8.6-10.3) 10/14/16 22:35 Total Bilirubin 0.2 mg/dL (0.3-1.0) L 10/14/16 22:35 AST 11 U/L (13-39) L 10/14/16 22:35 ALT 5 U/L (7-52) L 10/14/16 22:35 Alkaline Phosphatase 48 U/L (34-104) 10/14/16 22:35 Troponin I < 0.01 ng/mL (0.01-0.05) L 10/14/16 22:35 Total Protein 6.2 gm/dL (6.0-8.3) 10/14/16 22:35 Albumin 3.5 gm/dL (3.7-5.3) L 10/14/16 22:35 Globulin 2.7 gm/dL 10/14/16 22:35 Albumin/Globulin Ratio 1.3 (1.0-1.8) 10/14/16 22:35 Triglycerides 107 mg/dL (<150) 10/14/16 22:35 Cholesterol 126 mg/dL (<200) 10/14/16 22:35 LDL Cholesterol Direct 69 mg/dL (75-193) L 10/14/16 22:35 HDL Cholesterol 36 mg/dL (23-92) 10/14/16 22:35 TSH 5.85 uIU/ml (0.34-5.60) H 10/14/16 22:35 Salicylates < 25.0 mg/L (30.0-100.0) L 10/14/16 22:35 Acetaminophen < 10.0 ug/mL (10.0-30.0) L 10/14/16 22:35 Valproic Acid 96.0 ug/mL (50.0-100.0) 10/14/16 22:35 Ethyl Alcohol < 10 mg/dL (0-10) 10/14/16 22:35 RPR NONREACTIVE (NONREACTIVE) 10/14/16 22:35 - Physical Exam Vitals and I&O: Vital Signs Temp 98.2 F 10/29/16 06:30 Pulse 73 10/29/16 07:51 Resp 18 10/29/16 07:53 BP 119/57 10/29/16 06:30 Pulse Ox 97 10/29/16 07:51 Intake & Output 10/28/16 10/29/16 10/29/16 18:59 06:59 18:59 Intake Total 200 Balance 200 Intake: Oral 200 Other: # Voids 3 # Bowel Movements 0 Active Medications: Current Medications Acetaminophen (Tylenol) 650 mg PO Q4HR PRN PRN Reason: MILD PAIN AND T>101F Stop: 12/14/16 08:26 Last Admin: 10/24/16 20:21 Dose: 650 mg Al Hydrox/Mg Hydrox/Simethicone (Maalox) 30 ml PO Q4HR PRN PRN Reason: GI DISTRESS Stop: 12/14/16 03:27 Albuterol/Ipratropium (Duoneb Neb) 3 ml HHN Q4HR PRN PRN Reason: Shortness of Breath or Wheeze Stop: 12/14/16 08:26 Ascorbic Acid (Vitamin C) 500 mg PO DAILY [facility] Stop: 12/14/16 08:59 Last Admin: 10/28/16 08:44 Dose: 500 mg Atorvastatin Calcium (Lipitor) 20 mg PO HS [facility] Stop: 12/14/16 20:59 Last Admin: 10/28/16 20:36 Dose: 20 mg Bisacodyl (Dulcolax 10 Mg Supp) 10 mg RC DAILY PRN PRN Reason: Constipation Stop: 12/14/16 08:26 Buspirone HCl (Buspar) 10 mg PO DAILY [facility] Stop: 12/14/16 16:59 Last Admin: 10/28/16 08:43 Dose: 10 mg Dextromethorphan/Quinidine (Nuedexta 20mg-10mg) 1 cap PO Q12HR NOY Stop: 12/14/16 08:59 Last Admin: 10/28/16 20:36 Dose: 1 cap Divalproex Sodium (Depakote Sprinkle) 250 mg PO BID NOY PRN Reason: Protocol Stop: 12/14/16 08:59 Last Admin: 10/28/16 16:54 Dose: 250 mg Docusate Sodium (Colace) 100 mg PO DAILY [facility] Stop: 12/14/16 08:59 Last Admin: 10/28/16 08:44 Dose: 100 mg Ibuprofen (Motrin) 600 mg PO BID NOY Stop: 12/14/16 08:59 Last Admin: 10/28/16 16:55 Dose: 600 mg Lorazepam (Ativan) 0.5 mg PO Q4HR PRN; Protocol PRN Reason: Anxiety Stop: 11/14/16 03:27 Last Admin: 10/28/16 20:36 Dose: 0.5 mg Magnesium Hydroxide (Milk Of Magnesia) 30 ml PO HS PRN PRN Reason: Constipation Magnesium Hydroxide (Milk Of Magnesia) 30 ml PO HS PRN PRN Reason: Constipation Stop: 12/14/16 08:26 Mirtazapine (Remeron) 15 mg PO HS NOY PRN Reason: Protocol Stop: 12/14/16 20:59 Last Admin: 10/28/16 20:36 Dose: 15 mg Multivitamins/Vitamin C (Theragran) 1 tab PO DAILY NO[facility] Stop: 12/14/16 08:59 Last Admin: 10/28/16 08:44 Dose: 1 tab Oxybutynin Chloride (Ditropan Xl) 5 mg PO BID NOY Stop: 12/14/16 08:59 Last Admin: 10/28/16 16:54 Dose: 5 mg Pantoprazole Sodium (Protonix) 40 mg PO DAILY [facility] Stop: 12/14/16 08:59 Last Admin: 10/28/16 08:42 Dose: 40 mg Quetiapine Fumarate (Seroquel) 200 mg PO HS NOY PRN Reason: Protocol Stop: 12/22/16 20:59 Last Admin: 10/28/16 20:36 Dose: 200 mg Quetiapine Fumarate (Seroquel) 100 mg PO BID NOY Stop: 12/22/16 08:59 Last Admin: 10/28/16 16:55 Dose: 100 mg Sodium Phosphate (Fleet Enema) 135 ml RC Q48HR PRN PRN Reason: Constipation Stop: 12/14/16 08:26 Zinc Sulfate (Zinc Sulfate) 220 mg PO DAILY NO[facility] Stop: 12/14/16 08:59 Last Admin: 10/28/16 08:43 Dose: 220 mg Zolpidem Tartrate (Ambien) 5 mg PO HS PRN PRN Reason: Insomnia Stop: 12/14/16 03:27 Last Admin: 10/24/16 22:36 Dose: 5 mg General: Alert HEENT: Atraumatic Neck: Supple Cardiovascular: Regular rate Lungs: Clear to auscultation Abdomen: Bowel sounds Assessment/Plan - Problem List Patient Problems: All Active Problems Asthma (Acute) J45.909 COPD (chronic obstructive pulmonary disease) (Acute) Hyperlipidemia (Acute) E78.5 PBA (pseudobulbar affect) (Acute) F48.2 PVD (peripheral vascular disease) (Acute) I73.9 Psychosis (Acute) F29 TIA (transient ischemic attack) (Acute) - Assessment Assessment: See above - Plan Plan: Patient medically stable. Will continue current treatment. Nutritional Asmnt/Malnutr-PDOC - Dietary Evaluation Malnutrition Findings (Please click <Entered> for more info): Nutritional Asmnt/Malnutrition Start: 10/17/16 11: 20 Text: Status: Complete Freq: Document 10/17/16 11:20 GSUN (Rec: 10/17/16 11:46 [email or web address] [email or web address]) Nutritional Asmnt/Malnutrition Patient General Information Nutritional Screening Consult Diagnosis Reason for visit: psychosis Pertinent Medical Hx/Surgical Hx DM, asthma/COPD, TIA, hyperlipidemia, dementia, major depression, bipolar Subjective Information 71 [address] consult for right heel pressure ulcer . Pt was calm during visit, confusion noted, fixated on wanting to go home and taking shoes off (pt was not wearing shoes). Pt is edentulous, denied difficulties chewing/ swallowing. Pt usually with good appetite, avg PO intake 100% of meals yesterday, meeting nutritional needs. Explained to pt importance of nutrition for ulcer to heal, pt understood. Pt report UBW 115lb, pt appear closer to 140lb. Unable to weigh due to air loww mattress. Pt appear appropriate for age, no significant wasting noted. Current Diet Order/ Nutrition Support Regular, mech soft chopped Pertinent Medications Maalox, Vitamin C, Lipitor, Dulcolax, Colace, MOM, Remeron , Theragran, Protonix, Seroquel, Fleet Enema, Zinc Sulfate Pertinent Labs 10/14: creatinine 1.3H, glucose 116H POC glucose 145H, 98 Nutritional Hx/Data Height 1.57 m Height (Calculated Centimeters) 157.5 Current Weight (lbs) 65.771 kg Weight (Calculated Kilograms) 65.8 Weight (Calculated Grams) 28530.9 [place] Body Weight 110 Weight Status Overweight GI Symptoms Skin Integrity/Comment: Florencio 12. Woudn care 10/16: right heel acute on chronic pressure ulcer Current %PO Good (75-100%) Estimated Nutritional Goals Calories/Kcals/Kg EMR weight 145lb/65.9kg Kcals Calculated 1648-1977kcal (25-30kcal/kg) Protein Calculated 66-86g (1-1.3g/kg) Fluid: ml 1648-1977ml (1ml/kcal) Nutritional Problem 2. Problem Problem Altered nutrition related laboratory values related to Etiology DM aeb Signs/Symptoms: H&P, elevated glucose 1. Problem Problem Increased prot needs related to Etiology skin integrity aeb Signs/Symptoms: right heel pressure ulcer Intervention/Recommendation Comments 1. Recommend [id number] mech soft chopped. Avg PO intake is adequate. 2. Recommend 1 packet Arginaid for wound healing. Expected Outcomes/Goals Expected Outcomes/Goals 1. PO intake continue to meet at least 75% of estimated nutritional needs.
[2016-10-29] MEDS: Multivitamin Tab PO SCH (08:58)
[2016-10-29] MEDS: Pantoprazole 40 mg EC Tab PO SCH (08:58)
[2016-10-29] MEDS: Oxybutynin Chloride 5 mg ER Tab PO SCH ×2 (08:58→17:19)
[2016-10-29] MEDS: Dextromethorphan/Quinidine 20mg/10mg Cap PO SCH (08:59)
[2016-10-29] MEDS ORDERED: Haloperidol Lactate 5 mg/mL 1mL Vial IM ONE (12:40)
[2016-10-29] MEDS ORDERED: Haloperidol Lactate 5 mg/mL 1mL Vial ONE ×2 (12:43)
--- NOTE | 2016-10-29 19:43 | Progress Notes ---
DATE: 10/29/2016 SUBJECTIVE: Chart reviewed and the patient interviewed. Also discussed the patient's condition with the staff and reviewed records and labs. The patient is still extremely agitated and extremely irritable. The patient also is still yelling and screaming for no apparent reason. She also is still having severe irritability and mood swings and unable to follow directions. Otherwise, the patient continued to comply with taking medications, but on and off. ASSESSMENT: The patient is still psychotic. TREATMENT PLAN: Continue monitoring her behavior and her condition closely. Also, continue adjusting psychotropic medications and continue to work on her irritability and also pillowcase sewer still unable to find placement for the patient. JOB# [id number]
== END 2016-10-29 18:50 | disposition home or self-care (01) | DRG 885 ==
LOC: ER 21:25 → GERO 10-15 00:35
PROVIDERS: ADMIT Psychiatry & Neurology Psychiatry; ATTEND Psychiatry & Neurology Psychiatry
DX: F31.64 Bipolar disorder, current episode mixed, severe, with psychotic features (principal); N18.6 End stage renal disease; F03.90 Unspecified dementia, unspecified severity, without behavioral disturbance, psychotic disturbance, mood disturbance, and anxiety; E11.22 Type 2 diabetes mellitus with diabetic chronic kidney disease; F29 Unspecified psychosis not due to a substance or known physiological condition; E78.5 Hyperlipidemia, unspecified; K27.9 Peptic ulcer, site unspecified, unspecified as acute or chronic, without hemorrhage or perforation; F48.2 Pseudobulbar affect; E11.51 Type 2 diabetes mellitus with diabetic peripheral angiopathy without gangrene; Z86.73 Personal history of transient ischemic attack (TIA), and cerebral infarction without residual deficits; J44.9 Chronic obstructive pulmonary disease, unspecified
CPT/HCPCS: 36415-UA; 80053-TC; 80061-TC; 80164-TC; 80320-TC; 80329-TC; 82948-90; 84443-TC; 84484-TC; 85025-TC; 86592-TC; 93005; 94760; J1200; J1630; J2060; Z7610